=== PATIENT | male | born 1950 | race Caucasian/White ===

== ENCOUNTER 2017-01-05 18:27 | Inpatient (IN) ==
[2017-01-05] MEDS ORDERED: Naloxone 0.4 MG/ML INJ IVP PRN (21:42)
[2017-01-05] MEDS ORDERED: Nitroglycerin 0.4 MG TAB.SUBL SL PRN (21:53)
[2017-01-05 22:04] LABS: Basophils # 0.1 K/mcL (0.0-0.2); Basophils % 0.5 %; Eosinophils # 0.3 K/mcL (0.0-0.6); Hematocrit 34.2 % (37.5-50.1); Hemoglobin 11.5 g/dL (12.9-16.9); Immature Granulocytes % 0.5 % (0-4); Lymphocytes # 2.9 K/mcL (0.6-4.6); Lymphocytes % 22.1 %; Mean Corpuscular HGB Conc 33.6 g/dL (31.6-35.5); Mean Corpuscular Hemoglobin 27.7 pg (28.0-33.3); Mean Corpuscular Volume 82.4 fL (83.0-100.0); Mean Platelet Volume 11.6 fL (9.4-12.4); Monocytes # 0.9 K/mcL (0.0-1.3); Monocytes % 6.4 %; Platelet Count 225 K/mcL (140-400); Red Blood Count 4.15 M/mcL (4.19-5.50); Red Cell Distribution Width 14.3 % (11.5-14.5); Segmented Neutrophils % 68.5 %
[2017-01-05 22:07] LABS: Prothrombin Time 10.9 Seconds (9.4-12.1)
[2017-01-05 22:15] LABS: BUN/Creatinine Ratio 26 (6-26); Blood Urea Nitrogen 25 mg/dL (8-26); Calcium 9.6 mg/dL (8.6-10.8); Carbon Dioxide 21 mEq/L (19-29); Chloride 106 mEq/L (98-109); Glucose 234 mg/dL (70-99); Magnesium 1.3 mg/dL (1.6-2.6); Osmolality,Calculated 298 (280-300); Potassium 4.3 mEq/L (3.5-4.5); Sodium 138 mEq/L (136-145); eGFR For African Americans > 60 (> 60); eGFR For Non-African Americans > 60 (> 60)
[2017-01-05] MEDS ORDERED: D5% in Water 1,000 ML IVC PRN (22:17)
[2017-01-05] MEDS ORDERED: *HR* Dextrose 50 % in Water (Syg) 50 ML SYRINGE IVP PRN (22:17)
[2017-01-05] MEDS ORDERED: Dextrose Gel 15 GM PO PRN ×2 (22:17)
--- NOTE | 2017-01-05 22:47 | Internal Med History&Physical ---
<Eleni Lockwood - Last Filed: 01/05/17 23:25> Date of Encounter: 01/05/17 Time of Encounter: 21:30 Assessment and Plan (1) Chest pain Current visit: Yes Status: Acute 1 patient with history of coronary disease with stent placement patient began to experience left-sided chest pain arm pain approximately 1245 this afternoon. Troponin at [facility] was 0.096 was transferred to this facility for evaluation troponin here was 0.01 EKG at this time with no ST T wave elevation he does have frequent PVCs at the right bundle branch block. Patient was given morphine which did relieve his pain however it continued with exertion we will continue to trend troponins 2 continuous cardiac monitoring 3 obtain cardiac echo 4 obtain lipid profile 5 continue with aspirin and statin 6 oxygen as needed maintain SPO2 greater than 92% 7 consult cardiology as needed Qualifiers: Chest pain type: unspecified Qualified Code(s): R07.9 - Chest pain, unspecified (2) CHF (congestive heart failure) Current visit: No Status: Chronic 1 patient has history of combined heart failure with EF of 25% presently he appears stable 2 continuous cardiac monitoring 3 we will obtain cardiac echo 4 monitor intake and output daily weights 5 low sodium diet Qualifiers: Congestive heart failure type: combined Congestive heart failure chronicity : chronic Qualified Code(s): I50.42 - Chronic combined systolic (congestive) and diastolic (congestive) heart failure (3) Substance abuse Current visit: Yes Status: Acute 1atient has history of benzodiazepine as well as opiate use and dependence. He does purchase benzos and opiates off the street to supplement his habit. He presented to the [facility] on 01/04/2017 for admission to detox. He was continued on his opiate dt chronic back pain. He was placed on the benzo taper per psych however the concerned about medical conditions and when the patient medically cleared prior to detoxing. 2 we will continue patient's pain medication and to prevent withdrawal - decrease cardiac stress will continue with low-dose benzodiazepine to prevent withdrawal. He can return back to his taper once he is medically cleared (4) Tobacco abuse Current visit: Yes Status: Acute Encourage patient to stop smoking-nicotine patch (5) Schizophrenia Current visit: No Status: Chronic 1 we will continue with Seroquel Qualifiers: Schizophrenia type: unspecified Qualified Code(s): F20.9 - Schizophrenia, unspecified (6) DVT prophylaxis Current visit: Yes Status: Acute Heparin subcutaneous Internal Medicine - H&P: HPI Chief complaint: cp Admitted From: Hospital to Hospital Transfer Plans for Post Hospital Care: Home History of present illness: Mr. Velazquez is a 66 year old male with past medical history of CAD status post previous stents COPD combined systolic and diastolic heart failure with EF 25% status post ICD schizophrenia history of drug abuse with drug seeking behavior. Patient was admitted to the [facility] on 01/04/2017 he was therefore detox due to long history of opiate and benzo use abuse dependence. He has a history of chronic back and neck pain which is why he is using oxycodone he also has been taking clonazepam which has been prescribed as well as supplementing doses by purchasing off the street. Patient was scheduled for elective admission to detox program on 01/07/17. However he was seen by psychiatry who felt it was unsafe for direct admission due to his underlying medical issues. At that time they requested the patient be tapered off his benzos prior to admission to a long-term detox program. He was at the [facility] tapering his benzos with approximately 1245 he began to experience electrical pain radiating up his left arm into his left chest he began to experience 7 out of 10 sharp stabbing pressure. The pain was aggravated with exertion and relieved with morphine as well as rest. Cardiac enzymes were obtained troponin was 0.096 patient was transferred to this facility for further workup and evaluation. Upon arrival troponin obtained which was 0.01 patient continues to have 7 out of 10 chest pain EKG is obtained as well as stat labs. EKG with no ST -T wave abnormalities at this time Heart sounds are regular S1 and S2 with no rubs clicks gallops murmurs noted lungs sounds are clear abdomen soft nontender no pedal edema. She does appear to be tremulous. He is hemodynamically stable this time. I reviewed his case with Dr. Arreguin who agrees with plan Past Med Surg Social Fam HX - Additional Family History Additional family history: Reviewed and noncontributory Internal Medicine - H&P: Meds ASA/Acetaminophn/Mag/Alh/Caff 01/05/17 [History] ASA/Acetaminophn/Mag/Alh/Caff 81 mg PO DAILY 01/05/17 [History] Acetaminophen 325 tab PO TID 01/05/17 [History] Albuterol Inhaler 2 puff TID 01/05/17 [History] Atorvastatin 80 mg PO DAILY 01/05/17 [History] Budesonide/Formoterol 80/4.5 2 puff IH BID 01/05/17 [History] Chlorhexidine 01/05/17 [History] Chlorhexidine Gluconate 15 ml PO BID 01/05/17 [History] Finasteride 5 mg PO DAILY 01/05/17 [History] amLODIPine 5 mg PO DAILY 01/05/17 [History] Allergies ibuprofen Allergy (Unknown, Verified 01/05/17 20:40) Nausea nausea, patient states makes him sick at his stomach All Systems PM: A 10-system review of systems was performed and is negative for pertinent findings except as documented above in the HPI. - Constitutional Constitutional: no chills, no fever(s), no night sweats - EENT Eyes: no change in vision, no discharge, no pain, no photophobia Ears: no ear discharge, no ear pain, no tinnitus Nose, mouth and throat: no dysphagia, no nasal discharge, no neck pain, no sore throat - Cardiovascular Cardiovascular ROS IM: no chest pain, no diaphoresis, no dyspnea, no lightheadedness, no palpitations, no syncope - Respiratory Respiratory: no cough, no dyspnea, no wheezing, no excessive phlegm production - Gastrointestinal Gastrointestinal: no abdominal pain, no diarrhea, no hematemesis, no hematochezia, no melena, no nausea, no vomiting - Musculoskeletal Musculoskeletal ROS IM: back pain, neck pain - Neurological Neurological ROS: no confusion, no convulsions, no focal weakness, no numbness, no tingling, no tremor(s) - Hematologic/Lymphatic Hematologic/Lymphatic: no easy bruising - Constitutional Vitals: Temp Pulse Resp BP Pulse Ox 97.7 F 72 15 131/80 96 01/05/17 19:48 01/05/17 19:48 01/05/17 19:48 01/05/17 19:48 01/05/17 19:48 General appearance: Present: A&O X 3, answers questions appropriately - Head Head exam: Present: atraumatic, normocephalic - Eye Eye exam: Present: PERRL, conjuntiva pink, sclera anicteric - Neck Neck exam general surgery: Present: supple, trachea midline. Absent: lymphadenopathy - Respiratory Respiratory exam: Present: CTAB. Absent: accessory muscle use, rales, rhonchi, wheezes - Cardiovascular Cardiovascular exam: Present: RRR, +S1, +S2. Absent: diastolic murmur, gallop, rubs, systolic murmur - GI/Abdominal GI/Abdominal exam: Present: normal bowel sounds, soft, no peritoneal signs. Absent: distended, tenderness - Extremities Exam Extremities exam: Present: warm, radial pulses palpable and symetrical. Absent : calf tenderness, cyanotic, pedal edema - Neurological Exam Neurological exam: Present: CN II-XII intact, oriented X3, no focal deficits. Absent: pronater drift, facial droop, speech deficit - Skin Skin exam: Present: dry, intact Internal Med - H&P Results - Labs CBC & Chem 7: 01/05/17 21:02 01/05/17 21:02 Labs: Short CBC 01/05/17 Range/Units 21:02 WBC 13.2 H (4.3-11.1) K/mcL Hgb 11.5 L (12.9-16.9) g/dL Hct 34.2 L (37.5-50.1) % Plt Count 225 (140-400) K/mcL Neutrophils # 9.0 H (1.6-8.9) K/mcL BMP 01/05/17 21:02 Sodium 138 Potassium 4.3 Chloride 106 Carbon Dioxide 21 BUN 25 Creatinine 0.97 Glucose 234 H Calcium 9.6 Cardiac Enzymes 01/05/17 Range/Units 21:02 Troponin I 0.01 (0-0.03) ng/mL - EKG Data EKG comments: 01/05/17 23:24 Reviewed the EKG with sinus rhythm with PVCs right bundle-branch block <Mikel Arreguin - Last Filed: 01/06/17 00:56> Date of Encounter: 01/06/17 - Cardiovascular Cardiovascular ROS IM: no chest pain, no dyspnea - Respiratory Respiratory: no cough, no dyspnea, no hemoptysis - Psychiatric Psychiatric: anxiety, depression - Constitutional Vitals: Temp Pulse Resp BP Pulse Ox 97.7 F 72 15 131/80 96 01/05/17 19:48 01/05/17 19:48 01/05/17 19:48 01/05/17 19:48 01/05/17 19:48 General appearance: Present: A&O X 3, no acute distress, answers questions appropriately - Eye Eye exam: Present: EOMI, PERRL. Absent: scleral icterus Pupils: Present: normal accommodation - ENT ENT exam: Present: mucous membranes dry, normal exam - Neck Neck exam general surgery: Present: full ROM, supple. Absent: tenderness - Expanded Neck Exam Neck exam: Absent: carotid bruit - Respiratory Respiratory exam: Present: CTAB. Absent: rales, rhonchi, wheezes - Cardiovascular Cardiovascular exam: Present: RRR, +S1, +S2. Absent: diastolic murmur, systolic murmur - GI/Abdominal GI/Abdominal exam: Present: normal bowel sounds, soft. Absent: tenderness - Extremities Exam Extremities exam: Present: warm, radial pulses palpable and symetrical. Absent : calf tenderness - Back Exam Back exam: Absent: CVA tenderness (L), CVA tenderness (R) - Neurological Exam Neurological exam: Present: alert, CN II-XII intact, oriented X3, no focal deficits - Psychiatric Psychiatric exam: Present: anxious. Absent: agitated - Skin Skin exam: Present: dry, warm Internal Med - H&P Results - Labs CBC & Chem 7: 01/05/17 21:02 01/05/17 21:02 Labs: Short CBC 01/05/17 Range/Units 21:02 WBC 13.2 H (4.3-11.1) K/mcL Hgb 11.5 L (12.9-16.9) g/dL Hct 34.2 L (37.5-50.1) % Plt Count 225 (140-400) K/mcL Neutrophils # 9.0 H (1.6-8.9) K/mcL BMP 01/05/17 21:02 Sodium 138 Potassium 4.3 Chloride 106 Carbon Dioxide 21 BUN 25 Creatinine 0.97 Glucose 234 H Calcium 9.6 Cardiac Enzymes 01/05/17 Range/Units 21:02 Troponin I 0.01 (0-0.03) ng/mL - EKG Data -: EKG Interpreted by Myself EKG shows normal: sinus rhythm - EKG Data Prior EKG available for review: yes When compared to previous EKG: there is no significant change EKG comments: 01/06/17 00:49 Sinus rhythm; no acute ST-T changes; RBBB; PVC's. Disagree with computer interpretation; there is no ST-T elevation. - Attending Attestation I discussed the patient [place], PMH, ROS, lab data, and exam findings with Eleni Lockwood CNP. I then saw and examined patient independently as well. Patient denies any chest pain now, but he did have chest pain earlier at the [facility] prompting transfer to [place]. He has history of CAD. He will not be tapered off of his opiates or benzodiazepenes until he is medically stable and cleared from a cardiac standpoint. I will defer his detoxification to the [facility] once he is cleared from a medical standpoint here. He has been on opiates and BZD for over 25 years, and I highly recommend a slow taper. I reviewed his EKG personally from [facility] and from [facility] -- unchanged and stable at this time. Current troponin is 0.01. Other than my comments noted above and exam findings , I agree with Eleni's assessment and plan.
[2017-01-05] MEDS ORDERED: Magnesium Sulfate 2 GM in D5% in Water 100 ML IVPB ONE (23:26)
[2017-01-06] MEDS: *HR* OxyCODONE Immed Rel 5 MG TABLET PO SCH ×4 (00:04→21:48)
[2017-01-06 06:30] LABS: BUN/Creatinine Ratio 30 (6-26); Blood Urea Nitrogen 26 mg/dL (8-26); Calcium 8.9 mg/dL (8.6-10.8); Carbon Dioxide 25 mEq/L (19-29); Chloride 105 mEq/L (98-109); Glucose 190 mg/dL (70-99); Osmolality,Calculated 294 (280-300); Potassium 4.1 mEq/L (3.5-4.5); Sodium 137 mEq/L (136-145); eGFR For African Americans > 60 (> 60); eGFR For Non-African Americans > 60 (> 60)
[2017-01-06 06:32] LABS: Chol/HDL Ratio 2.9 (0-4.9)
[2017-01-06] MEDS ORDERED: clonazePAM 0.5 MG TABLET PO SCH ×2 (09:00)
[2017-01-06] MEDS: Gabapentin 300 MG CAPSULE PO SCH ×3 (09:14→21:47)
[2017-01-06] MEDS: amLODIPine 5 MG TABLET PO SCH (09:15)
[2017-01-06] MEDS: Aspirin 81 MG TAB.CHEW PO SCH (09:15)
[2017-01-06] MEDS: Finasteride 5 MG TABLET PO SCH (09:15)
[2017-01-06] MEDS: Nicotine 21 MG PATCH.TD24 TD SCH (09:16)
[2017-01-06] MEDS: Insulin LISPRO 300 UNITS/3 ML VIAL SQ SCH ×3 (09:19→17:42)
[2017-01-06 10:21] LABS: Basophils # 0.1 K/mcL (0.0-0.2); Basophils % 0.7 %; Eosinophils # 0.4 K/mcL (0.0-0.6); Eosinophils % 3.4 %; Hematocrit 37.9 % (37.5-50.1); Hemoglobin 12.2 g/dL (12.9-16.9); Immature Granulocytes % 0.7 % (0-4); Lymphocytes % 34.1 %; Mean Corpuscular HGB Conc 32.2 g/dL (31.6-35.5); Mean Corpuscular Hemoglobin 26.7 pg (28.0-33.3); Mean Corpuscular Volume 82.9 fL (83.0-100.0); Mean Platelet Volume 10.4 fL (9.4-12.4); Monocytes # 0.7 K/mcL (0.0-1.3); Monocytes % 5.8 %; Neutrophils # 6.4 K/mcL (1.6-8.9); Platelet Count 230 K/mcL (140-400); Red Blood Count 4.57 M/mcL (4.19-5.50); Red Cell Distribution Width 14.3 % (11.5-14.5); Segmented Neutrophils % 55.3 %
[2017-01-06] MEDS: Magnesium Oxide 400 MG TABLET PO SCH ×3 (10:47→21:46)
[2017-01-06] MEDS: Budesonide/Formoterol 80/4.5 MDI IH SCH ×2 (11:03→22:42)
[2017-01-06 12:53] LABS: Bilirubin,Urine Negative (Negative); Blood,Urine Moderate (Negative); Clarity,Urine Clear (Clear); Color,Urine Yellow (Yellow); Glucose,Urine (UA) Normal (Normal); Ketones,Urine Negative (Negative); Leukocyte Esterase,Urine Negative (Negative); Nitrite,Urine Negative (Negative); Protein,Urine Negative (Neg-Trace); Specific Gravity,Urine 1.018 (1.010-1.025); Urobilinogen,Urine Normal (Normal)
[2017-01-06 12:56] LABS: Bacteria,Urine None Seen per hpf (None-Few); Hyaline Casts,Urine None Seen per lpf (None-Few); Squamous Epithelial Cell,Urine Many per lpf (None-Few)
--- NOTE | 2017-01-06 14:13 | Electrocardiograph Report ---
[place] [id number] Test Date: 2017-01-05 Pat Name: Artur Velazquez Department: 111 Room: [facility] Gender: M [employer]: [facility] : 1950 Requested By: Eleni Lockwood Order Number: [id number] Reading MD: Joshua Peter Measurements Intervals [place] Rate: 75 P: 61 CA: 170 QRS: -21 QRSD: 154 T: 21 QT: 408 QTc: 436 Interpretive Statements SINUS RHYTHM WITH OCCASIONAL VENTRICULAR PREMATURE COMPLEXES BORDERLINE LEFT AXIS DEVIATION RIGHT BUNDLE BRANCH BLOCK Electronically Signed On 01-06-2017 14:11:27 EDT by Joshua Peter
--- NOTE | 2017-01-06 15:04 | Internal Med Progress Note ---
Date of Encounter: 01/06/17 Time of Encounter: 15:02 - Assessment and plan (1) Chest pain Current Visit: Yes Status: Acute Assessment and plan: Case discussed with cardiology. As his cardiac stents were placed in 2007, he might benefit from a pharmacologic stress test. Likely stress test tomorrow morning. His cardiac enzymes have been negative. Patient is moderate risk due to need for further evaluation for ischemia during the current stay. Qualifiers: Chest pain type: precordial pain Qualified Code(s): R07.2 - Precordial pain (2) Coronary artery disease Current Visit: Yes Status: Chronic Assessment and plan: Patient complains of chest pain that is radiating to the left arm. Cardiology on board. Likely stress test tomorrow. Qualifiers: Coronary Disease-Associated Artery/Lesion type: [place] artery [place] vs. transplanted heart: [place] heart Associated angina: with unspecified angina Qualified Code(s): I25.119 - Atherosclerotic heart disease of [place] coronary artery with unspecified angina pectoris (3) Tobacco abuse Current Visit: Yes Status: Chronic Assessment and plan: Counseled regarding cessation. (4) Substance abuse Current Visit: No Status: Chronic - Subjective Interval history: Patient states that he has chest pain in the middle of the chest radiating to his left arm associated with nausea, shortness of breath and palpitations and sweating. He denies any aggravating or relieving factors. He is requesting for morphine for the chest pain. When nitroglycerin was offered, he states that he is allergic to nitroglycerin. He states that he breaks out in hives with the nitroglycerin and that it upsets his stomach. He states that he had a stent put in in 2007. He reports having a left heart catheterization about 5 years ago in [place] which did not reveal any acute abnormalities. - Constitutional Vitals: Temp Pulse Resp BP Pulse Ox 98.3 F 85 18 138/96 96 01/06/17 12:06 01/06/17 12:06 01/06/17 12:06 01/06/17 12:06 01/06/17 12:06 General appearance: Present: A&O X 3, no acute distress, answers questions appropriately Exam: Gen.: Lying in bed. No acute distress. Chest: Clear to auscultation bilaterally. No adventitious sounds present. No reproducible chest wall tenderness. CVS: First and second heart sounds present. No murmurs, rubs or gallops. Abdomen: Soft, nontender, nondistended. Bowel sounds present. No hepatosplenomegaly. Internal Medicine: Result - Labs CBC & Chem 7: 01/06/17 09:58 01/06/17 05:48 Labs: Short CBC 01/05/17 01/06/17 Range/Units 21:02 09:58 WBC 13.2 H 11.6 H (4.3-11.1) K/mcL Hgb 11.5 L 12.2 L (12.9-16.9) g/dL Hct 34.2 L 37.9 (37.5-50.1) % Plt Count 225 230 (140-400) K/mcL Neutrophils # 9.0 H 6.4 (1.6-8.9) K/mcL BMP 01/05/17 01/06/17 21:02 05:48 Sodium 138 137 Potassium 4.3 4.1 Chloride 106 105 Carbon Dioxide 21 25 BUN 25 26 Creatinine 0.97 0.88 Glucose 234 H 190 H Calcium 9.6 8.9 Cardiac Enzymes 01/05/17 01/06/17 Range/Units 21:02 09:58 Troponin I 0.01 0.01 (0-0.03) ng/mL Urine 01/06/17 Range/Units 12:31 Urine Color Yellow (Yellow) Urine Clarity Clear (Clear) Urine pH 6.0 (5.0-8.0) pH Units Ur Specific [place] 1.018 (1.010-1.025) Urine Protein Negative (Neg-Trace) mg/dL Urine Glucose (UA) Normal (Normal) mg/dL - ABG Interpretation ABG results: PT/INR, D-dimer PT 10.9 Seconds (9.4-12.1) 01/05/17 21:02 - Impressions Impressions Chest X-Ray 01/05/17 22:53 IMPRESSION: Right middle lobe opacification, likely atelectasis or scarring. Pneumonia also could have this appearance. D/ / Nolvia Wilkinson Cha, MD / Nolvia Wilkinson Cha, MD Interpreting Provider: Nolvia Wilkinson Cha, MD Case discussed with cardiology Consult Discharge Plan - Plan [facility]: [facility] [Primary Care Provider] -
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
[2017-01-06] MEDS: Metoprolol XL (24 HR) Succ 25 MG TAB.ER.24H PO SCH (17:41)
[2017-01-06] MEDS ORDERED: Insulin LISPRO 300 UNITS/3 ML VIAL SQ SCH (21:00)
[2017-01-06] MEDS ORDERED: Insulin DETEMIR 100 UNIT/ML X5UNITS SQ SCH (21:00)
[2017-01-06] MEDS: *HR* LORazepam 1 MG TABLET PO SCH (21:47)
[2017-01-07] MEDS ORDERED: Regadenoson 0.4 MG/5 ML SYRINGE IVP ONE (06:57)
[2017-01-07] MEDS: Insulin LISPRO 300 UNITS/3 ML VIAL SQ SCH ×2 (08:56→12:55)
[2017-01-07] MEDS: *HR* OxyCODONE Immed Rel 5 MG TABLET PO SCH ×2 (09:01→15:19)
[2017-01-07] MEDS: Budesonide/Formoterol 80/4.5 MDI IH SCH (11:01)
--- NOTE | 2017-01-07 12:17 | Nuclear Medicine Stress Report ---
Regadenoson Nuclear Stress Name: Artur Velazquez Date of Study: 01/07/2017 Date: 1950 Ht: 68.0 in Medical Record#: [id number] Age: 66 Wt: 165.0 lb Gender: Male Order #: [id number] Location: [facility] Room: [facility] Supervising Provider: Maryjo Lang CNP Reading Physician: Lloyd Smith DO, FACC, FASAR Ordering Physician: Gus Burch MD Primary Care Physician: [facility] Stress Technologist: Nicolas Negron DIRECTOR GLOBAL MEDICAL AFFAIRS, CCT Protein Specialist: Daya Chacko Indications: Chest Pain Impression: Pharmacologic stress ECG is non diagnostic for ischemia due to submaximal HR. Gated EF = 41%. The left ventricle is dilated. LVEDV = 153 mL. Medium sized, moderate intensity, primarily fixed inferior, inferoseptal and apex defect suggestive of a prior infarct. Perfusion imaging was negative for ischemia. History: Hypertension Diabetes Hypercholesteremia History of Smoking Prior PCI Stress Test Summary: Stress Test Type: Pharmacologic Regadenoson 0.4mg/5ml given IV Baseline Information: Initial Heart Rate: 71 Blood Pressure: 114/68 Stress Information: Stress Time: 4 min 00 sec Test Terminated Due to (primary): Completed Protocol Maximum Blood Pressure: 102/70 Maximum Heart Rate: 94 Percent Maximum Heart Rate Achieved: 60 Double Product: 9588 METS Reached: 1 Symptoms: Shortness of breath, [place] Nuclear Summary: SPECT myocardial perfusion imaging using Tc99m Sestamibi given intravenously was performed at rest and following cardiac stress testing. The resting images were obtained following initial dose of 11 mCi. Following stress an additional dose of 30.6 mCi was given at peak exercise or 30 seconds post regadenoson infusion. Medication Given: Time Medication Dose Units Route Findings: Stress Note * Resting ECG demonstrated normal sinus rhythm, RBBB. * Occasional PVCs noted prior to exam beginning. * Pharmacologic stress ECG is non diagnostic for ischemia due to submaximal HR. * Occasional PVCs noted during stress. * Patient had no chest pain during stress. Hemodynamic responses * Normal hemodynamic responses to pharmacologic stress. Study Quality * Study quality is average. Gated EF % * Gated EF = 41%. Left Ventricle * The left ventricle is dilated. LVEDV = 153 mL. Inferior Perfusion Rest * The inferior/inferoseptal segments and apex show a moderate reduction in perfusion. Inferior Perfusion Stress * The inferior/inferoseptal segments and apex show a moderate reduction in perfusion. TID * No evidence of transient ischemic dilatation. TID ratio = 0.94. Lung Uptake * There is no evidence of increase lung uptake. Updated by Lloyd Smith DO, MAGGY, KIM, HARLEY on 01/07/2017 12:10:30 PM electronically signed on 01/07/2017 12:11:28 PM with status of Final
[2017-01-07 12:38] VITALS: BP 128/63
[2017-01-07] MEDS: amLODIPine 5 MG TABLET PO SCH (12:54)
[2017-01-07] MEDS: Aspirin 81 MG TAB.CHEW PO SCH (12:54)
[2017-01-07] MEDS: Finasteride 5 MG TABLET PO SCH (12:54)
[2017-01-07] MEDS: Gabapentin 300 MG CAPSULE PO SCH ×2 (12:54→15:19)
[2017-01-07] MEDS: *HR* LORazepam 1 MG TABLET PO SCH (12:54)
[2017-01-07] MEDS: Metoprolol XL (24 HR) Succ 25 MG TAB.ER.24H PO SCH (12:54)
[2017-01-07] MEDS: Nicotine 21 MG PATCH.TD24 TD SCH (12:55)
--- NOTE | 2017-01-07 13:05 | Discharge Summary ---
Date of Encounter: 01/07/17 Time of Encounter: 13:03 - Discharge Diagnosis (1) Chest pain Priority: Primary Status: Resolved Qualifiers: Chest pain type: precordial pain Qualified Code(s): R07.2 - Precordial pain (2) Coronary artery disease Priority: Secondary Status: Chronic Qualifiers: Coronary Disease-Associated Artery/Lesion type: [place] artery [place] vs. transplanted heart: [place] heart Associated angina: without angina Qualified Code(s): I25.10 - Atherosclerotic heart disease of [place] coronary artery without angina pectoris (3) Tobacco abuse Priority: Secondary Status: Chronic (4) Substance abuse Priority: Secondary Status: Chronic - Discharge Medications Home Medications: Acetaminophen [Non-Aspirin] 325 mg PO TID 01/05/17 [History] Albuterol Sulfate [Albuterol Inhaler] 2 puff IH Q6HR PRN 01/05/17 [History] Aspirin [Lo-Dose Aspirin EC] 81 mg PO DAILY 01/05/17 [History] Atorvastatin Calcium [Lipitor] 80 mg PO HS 01/05/17 [History] Budesonide/Formoterol 80/4.5 [Symbicort 80/4.5] 2 puff IH BIDR 01/05/17 [ History] Chlorhexidine Gluconate [Peridex] 15 ml MM BID 01/05/17 [History] Finasteride [Proscar] 5 mg PO DAILY 01/05/17 [History] Lidocaine Jelly 2% 1 appl MM TID PRN 01/05/17 [History] amLODIPine [Norvasc] 5 mg PO DAILY 01/05/17 [History] Gabapentin [Neurontin] 1,200 mg PO TID 01/06/17 [History] Insulin ASPART [Novolog Flexpen] 10 unit SQ TIDAC 01/06/17 [History] Insulin Glargine,Hum.rec.anlog [Lantus Solostar] 34 unit SQ QAM 01/06/17 [ History] LORazepam [Ativan] 1 mg PO BID 01/06/17 [History] Losartan [Cozaar] 25 mg PO DAILY 01/06/17 [History] Metformin HCl [Glucophage] 1,000 mg PO BID 01/06/17 [History] Nicotine Patch [Nicoderm] 21 mg TD DAILY 01/06/17 [History] Nitrofurantoin Monohyd/M-Cryst [Macrobid 100 mg Capsule] 100 mg PO BIDWM [History] Nitroglycerin [Nitrostat] 0.4 mg SL AD PRN 01/06/17 [History] Oxycodone HCl 10 mg PO TID 01/06/17 [History] Oxycodone HCl [Oxaydo] 5 mg PO Q6H PRN 01/06/17 [History] Pantoprazole Sodium [Protonix] 40 mg PO DAILY 01/06/17 [History] Quetiapine Fumarate [Seroquel Xr] 225 mg PO HS 01/06/17 [History] Ranitidine HCl [Zantac] 150 mg PO BID PRN 01/06/17 [History] hydrOXYzine HCl [Hydroxyzine HCl] 50 mg PO Q6H PRN 01/06/17 [History] Allergies/Adverse Reactions: Allergies ibuprofen Allergy (Unknown, Verified 01/05/17 20:40) Nausea nausea, patient states makes him sick at his stomach Procedures/tests Complete & Pending: Procedures Performed prior 72 hours Category Date Time Status NM ruiz perf SPECT multi [NM] Routine Exams 01/06/17 15:26 Taken ECG 12 lead ECG [ECG] Stat Y 01/05/17 21:42 Completed EV echocardiogram Routine Y 01/05/17 21:44 Completed SP pharm nuclear stress Routine Y 01/07/17 12:00 Completed Date of admission: 01/05/17 19:17 Primary care physician: PCP PRASANTH Consults: 01/06/17 13:05 Consult to Cardiology [CONS] Routine Comment: Consulting Provider: Cardiology Kya Reason for Consult: CHEST PAIN, CAD Call Completed: Yes 01/07/17 09:23 Consult to Gear Coding Machine Operator [CONS] Routine Reason for SW Consult: from [place] Discharging clinician: Gus Burch Anticipated date of discharge: 01/07/17 - Patient Status Disposition: Transfer Other Condition: Good Functional capacity at discharge: independent ambulation Overall status at discharge: patient is back to baseline - Discharge Instructions [facility] Care Provider[facility] - - Diet and Activity Activity: increase activity as tolerated Diet: low fat, low cholesterol, low salt diet Hospital course: Mr. 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 Hence, he was transferred to [facility] for evaluation of the same. The patient was admitted and evaluated by cardiology due to his history of coronary artery disease. The patient last had stents put in in 2007. He has not had any further stress test performed. Hence, it was decided that the issue would benefit from a pharmacological stress test. The patient underwent the same on 01/07/2017. The stress test demonstrates a fixed defect which is consistent with a prior infarction but is negative for reversible ischemia. The patient reports that his chest pain has resolved on the day of discharge. As the patient's chest pain has resolved and his pharmacological stress test is negative for reversible ischemia, he has been deemed stable to be discharged back to the [facility] for continued detoxication. - Time Spent with Patient Total time spent providing and/or coordinating discharge services: - Constitutional Vitals: Temp Pulse Resp BP Pulse Ox 97.8 F 83 15 128/63 96 01/07/17 11:00 01/07/17 11:00 01/07/17 11:00 01/07/17 11:00 01/07/17 11:00 General appearance: Present: A&O X 3, no acute distress, answers questions appropriately Exam: Gen.: Sitting in a chair and consuming his lunch. No acute distress. Chest: Clear to auscultation bilaterally. No adventitious sounds present. CVS: First and second heart sounds present. No murmurs, rubs or gallops.
--- NOTE | 2017-01-07 14:23 | Cardiology Progress Note ---
Date of Encounter: 01/07/17 Time of Encounter: 14:30 Assessment and Plan (1) Chest pain Current Visit: Yes Status: Resolved C/o chest pain similar to previous MT. Mild troponin 0.09, then negative x 2. EKG with no acute ST changes. Last LHC five years ago at [facility] showed patent stents. TTE this admission shows EF 30-35% with global and regional wall motion abnormalities. Lead noted in the RA and RV. Mild mitral regurgitation. (reports EF previously 25%.) Reports allergy to NTG- causes nausea. Low dose bb started. Denies chest pain today. C/o only low back pain and leg pain. Pharmacologic stress test completed today was negative for ischemia. Noted to have prior infarct in the inferoseptum and apex. Continue medical management. Out patient f/u in 2 weeks with cardiology. [facility]iology will coordinate. Qualifiers: Chest pain type: precordial pain Qualified Code(s): R07.2 - Precordial pain (2) Coronary artery disease Current Visit: Yes Status: Chronic H/o MT and PCI in 2007. Continue asa and statin. Add bb. Qualifiers: Coronary Disease-Associated Artery/Lesion type: [place] artery [place] vs. transplanted heart: [place] heart Associated angina: without angina Qualified Code(s): I25.10 - Atherosclerotic heart disease of [place] coronary artery without angina pectoris (3) CHF (congestive heart failure) Current Visit: No Status: Chronic EF 30-35%. Reports it was 25% in the past. Currently euvolemic. ICD in place. Continue bb and arb. CHF education. Strict I&O and daily weights. Low sodium diet. Qualifiers: Congestive heart failure type: combined Congestive heart failure chronicity : chronic Qualified Code(s): I50.42 - Chronic combined systolic (congestive) and diastolic (congestive) heart failure Discussion w patient/family: The assessment and plan as outlined above was discussed with the patient and/or family members who expressed understanding and agreement. All questions were answered. Thank you for involving us in the care of your patient. Please call with any questions. Subjective Principal diagnosis: Chest pain Interval history: Stress test completed today. Objective Vital Signs, Last 4 Hours Temp Pulse Resp BP Pulse Ox 01/07/17 11:00 97.8 F 83 15 128/63 96 General: Conversant, No Apparent Distress HEENT: Atraumatic, Normocephaly, Mucus Membranes Moist Neck: No JVD, Normal carotid pulses Cardiac: Reg Rate and Rhythm, Normal S1 and S2, No Murmur Lungs: Normal Breath Sounds, No Wheeze, Rales, Rhonchi Neuro: Alert and responsive, No focal deficits noted Abdomen: Soft, Non-Tender Skin: No rashes noted on visualized skin Musculoskeletal: No Chest Wall Tenderness, Other (genralized weakness. ) Extremities: No Clubbing, No Cyanosis, No Edema, Normal Pulses Results 01/06/17 09:58 01/06/17 05:48 Lab Results 01/06/17 16:02 Troponin I 0.02 Consult Discharge Plan - Plan Instructions: Chest Pain (DC), Chest Pain (GEN) [facility]errals: [facility] [Primary Care Provider] -
== END 2017-01-07 15:50 | disposition other institution (70) | DRG 303 ==
LOC: 2NENU 19:17
PROVIDERS: ADMIT Internal Medicine; ATTEND Internal Medicine Sleep Medicine

== ENCOUNTER 2017-03-30 12:46 | Inpatient (IN) ==
--- NOTE | 2017-03-30 12:53 | Emergency Department Note ---
Disposition Clinical Impression: Chest pain Qualifiers: Chest pain type: unspecified Qualified Code(s): R07.9 - Chest pain, unspecified Disposition: Admitted As Inpatient Condition: Good Chest Pain HPI - General Chief Complaint: ED Chest Pain Stated Complaint: chest pain Time Seen by Provider: 03/30/17 12:49 Source: patient, EMS Mode of arrival: EMS Limitations: no limitations Vital Signs Reviewed: Yes Nursing Notes Reviewed: Yes - History of Present Illness HPI Narrative: Patient presents to the ED as a transfer from the [facility]. Patient was admitted to the psychiatry unit at the [facility] and was complaining of chest pain that started yesterday. He went into the [facility] urgent care today and had a normal chest x-ray, but did have an elevated troponin. Does have a history of coronary artery disease with one stent in 2007. States this pain feels very similar. Started yesterday, has been intermittent, states it "feels like an elephant is sitting on my chest", nonradiating, associated with intermittent diaphoresis and nausea but no vomiting. No abdominal pain. No shortness of breath. No pain or swelling in his legs. States he is allergic to nitroglycerin. Patient was sent here for further evaluation. - Related Data Home Medications Medication Instructions Recorded Confirmed Acetaminophen [Non-Aspirin] 325 mg PO TID 01/05/17 03/30/17 Albuterol Sulfate [Albuterol 2 puff IH Q6HR PRN 01/05/17 03/30/17 Inhaler] Aspirin [Lo-Dose Aspirin EC] 81 mg PO DAILY 01/05/17 03/30/17 Atorvastatin Calcium [Lipitor] 80 mg PO HS 01/05/17 03/30/17 Budesonide/Formoterol 80/4.5 2 puff IH BIDR 01/05/17 03/30/17 [Symbicort 80/4.5] Chlorhexidine Gluconate [Peridex] 15 ml MM BID 01/05/17 03/30/17 Finasteride [Proscar] 5 mg PO DAILY 01/05/17 03/30/17 Lidocaine Jelly 2% 1 appl MM TID PRN 01/05/17 03/30/17 amLODIPine [Norvasc] 5 mg PO DAILY 01/05/17 03/30/17 Gabapentin [Neurontin] 300 mg PO TID 01/06/17 03/30/17 Insulin ASPART [Novolog Flexpen] 10 unit SQ TIDAC 01/06/17 03/30/17 Insulin Glargine,Hum.rec.anlog 34 unit SQ QAM 01/06/17 03/30/17 [Lantus Solostar] LORazepam [Ativan] 1 mg PO BID 01/06/17 03/30/17 Losartan [Cozaar] 25 mg PO DAILY 01/06/17 03/30/17 Metformin HCl [Glucophage] 1,000 mg PO BID 01/06/17 03/30/17 Nicotine Patch [Nicoderm] 21 mg TD DAILY 01/06/17 03/30/17 Pantoprazole Sodium [Protonix] 40 mg PO DAILY 01/06/17 03/30/17 Quetiapine Fumarate [Seroquel Xr] 225 mg PO HS 01/06/17 03/30/17 Ranitidine HCl [Zantac] 150 mg PO BID PRN 01/06/17 03/30/17 hydrOXYzine HCl [Hydroxyzine HCl] 50 mg PO Q6H PRN 01/06/17 03/30/17 Allergies Allergy/AdvReac Type Severity Reaction Status Date / Time ibuprofen Allergy Unknown Nausea Verified 03/30/17 13:24 nitroglycerin Allergy Hives Verified 03/30/17 13:24 ketorolac [From Toradol] AdvReac Nausea Verified 03/30/17 13:24 All systems ED: reviewed and negative except as stated. Constitutional: Denies: fever Eyes: Denies: vision change Cardiovascular: Reports: chest pain Respiratory: Denies: cough Gastrointestinal: Reports: nausea Musculoskeletal: Denies: back pain Neurological: Denies: headache Chest Pain PMH - Past Medical History Medical history: Reports: cardiomyopathy, CHF, coronary artery disease, hyperlipidemia, hypertension, myocardial infarction, other (substance abuse) Surgical history: Reports: pacemaker/AICD - Social History Smoking Status: Unknown if ever smoked Alcohol use: Reports: none Drug use: Reports: none Physical Exam - General Limitations: no limitations General appearance: alert, in no apparent distress - Head Head exam: atraumatic, normocephalic, normal inspection - Eye Eye exam: Present: normal appearance, PERRL, EOMI - ENT ENT exam: normal exam, normal oropharynx, mucous membranes moist - Neck Neck exam: Present: normal inspection, full ROM, trachea midline - Chest Chest inspection: Present: normal inspection, symmetric chest wall rise, other ( AICD or a pacemaker noted in the left chest) - Respiratory Respiratory exam: Present: normal lung sounds bilaterally - Cardiovascular Cardiovascular exam: Present: regular rate, normal rhythm, normal heart sounds - Abdominal Exam Abdominal exam: Present: soft, Non-Tender, distention (Patient reports baseline) . Absent: tenderness, guarding, rebound, rigidity - Extremities Exam Extremities exam: Present: normal inspection, full ROM, normal capillary refill. Absent: tenderness, pedal edema - Expanded Lower Extremity Exam Hip/Pelvis exam: Present: pelvis stable - Neurological Exam Neurological exam: Present: alert, oriented X3 - Psychiatric Psychiatric exam: Present: normal affect, normal mood - Skin Skin exam: Present: warm, dry, intact, normal color Course Course Narrative: 66-year-old male presenting with chest pain and elevated troponin. Reportedly had a normal EKG and chest x-ray at the [facility]. We will recheck a troponin and EKG here. Patient was already given full-strength aspirin. We will admit for further workup. - Consultations Consultation #1: Spoke with the on-call rope silica machine operator, Dr. Graves. Due to the patient's ongoing chest pain. We have repeated a troponin. Once that gets back. We will call him back to determine if further intervention will be necessary. Patient remained stable, no diaphoresis, reports his pain is still there. Have not been able to give nitroglycerin due to a reported allergy. Time: 13:24 Vital Signs Temperature 98.2 F 03/30/17 12:47 Pulse Rate 97 03/30/17 12:47 Respiratory Rate 20 03/30/17 12:47 Blood Pressure 139/84 03/30/17 12:47 O2 Sat by Pulse Oximetry 92 03/30/17 12:47 Temperature 98.1 F 03/30/17 14:08 Pulse Rate 94 03/30/17 14:08 Respiratory Rate 16 03/30/17 14:08 Blood Pressure 120/76 03/30/17 14:08 O2 Sat by Pulse Oximetry 96 03/30/17 14:08 Oxygen Delivery Oxygen Delivery Nasal Cannula Chest Pain - Medical Records Medical records reviewed: Yes I reviewed the patient's medical records. - Lab Data Lab results reviewed: Yes I reviewed the patient's lab results. Lab Results 03/30/17 Range/Units 13:05 Troponin I 0.01 (0-0.03) ng/mL - EKG Data EKG attestation: Yes I reviewed and interpreted this EKG. EKG results narrative: Sinus rhythm with PVCs, rate 98, WI interval 179, QRS 144, QTC 433, left axis deviation, right bundle branch block, no previous available. Attestation Statement - Attestation Attestation: I examined this patient and my medical decision-making was reviewed with the Resident Physician. I agree with the documented findings, disposition and treatment plan as described except to the extent set forth below. Face to face time provided in conjunction with the resident physician Dr. Cedillo [facility]. h/o CAD, AICD. had + trop PASTEURISER OPERATOR. appears in no acute distress on exam
[2017-03-30] MEDS ORDERED: *HR* Morphine 2 MG/ML SYRINGE IVP ONE (12:54)
--- NOTE | 2017-03-30 15:17 | Cardiology Consult Note ---
Date of Encounter: 03/30/17 Time of Encounter: 14:00 Assessment and Plan (1) Chest pain Current Visit: No Status: Acute Per cardiology: -Reports chest pain started today while eating breakfast. -States pain worsens with exertion, deep inspiration, and sitting forward. -Reports pain relieved by rest. -Admits to current chest pain rates 6/10. -ECG with no acute ischemic changes, unchanged from previous ECG. -Stress 12/2016 with fixed defect noted, no ischemia noted. -Trop[facility] at [facility] 0.[facility]. Troponin at [place] negative. -Of note, patient reports is allergic to nitro, states has hives and nausea with nitro. -Trend troponins. -Will continue to monitor. Qualifiers: Chest pain type: unspecified Qualified Code(s): R07.9 - Chest pain, unspecified (2) Ischemic cardiomyopathy Current Visit: Yes Status: Chronic Per cardiology: -Known ischemic cardiomyopathy. Has ICD. -TTE 12/2016 with LVEF 30-35%, global and regional wall motion abnormalities. Lead noted in RA and RV. Mild MR. -Per review of last cardiology note, was on beta master and ARB. -Recommend continuing home medications. (3) Coronary artery disease Current Visit: No Status: Chronic Per cardiology: -Known CAD with reported LHC 5 years ago at a hospital in [place] with patent stents. -Reports H/O [place] with PCI in 2007. -Per last cardiology note was on asa, statin, and beta master. -Will continue to monitor. -Recommend continuing home medications. Qualifiers: Coronary Disease-Associated Artery/Lesion type: [place] artery [place] vs. transplanted heart: [place] heart Associated angina: without angina Qualified Code(s): I25.10 - Atherosclerotic heart disease of [place] coronary artery without angina pectoris (4) Tobacco abuse Current Visit: No Status: Chronic Per cardiology: -Smokes 1.5 ppd for 40 years. - I spent 5 minutes reviewing smoking cessation education with patient. Discussion w patient/family: The assessment and plan as outlined above was discussed with the patient who expressed understanding and agreement. All questions were answered. Thank you for involving us in the care of your patient. Please call with any questions. Discussed and reviewed with . History of Present Illness Consult date: 03/30/17 Requesting physician: Darion Cedillo Consult reason: elevated troponin Chief complaint: chest pain History of present illness: Mr. Velazquez is a 66 year old male with a relevant past medical history of CAD s/ p PCI 2007, ischemic cardiomyopathy, AICD, HTN, hyperlipidemia, DM, and smoking 1.5ppd for 40 years. Per reports, patient was inpatient at the [place] and complained of chest pain. Troponin at [place] was noted to be 0.1. Patient reports chest pain started at 0730 this morning while he was sitting eating breakfast. Patient reports pain felt "like an elephant sitting on my chest." Patient reports pain radiated to left arm. Patient reports pain was worsened with exertion and relieved with rest. Patient reports pain worsened with sitting forward. ALso states pain somewhat worsens with deep inspiration. Patient reports this pain is similar to his previous angina symptoms. Patient reports increased shortness of breath and increased fatigue over the past 3-4 months. Patient admits to current chest pain, rates 6/10. Of note, patient reports has gained about 7 pounds from his scales at home. ALso reports productive cough with yellow sputum. Past Med Surg Social Fam HX - Past Medical History Attestation: Yes The following information was validated with the patient. Source: patient, old records reviewed Medical history: cardiomyopathy, CHF, coronary artery disease, hyperlipidemia, hypertension, myocardial infarction, other (substance abuse) Psychiatric history: anxiety, depression, PTSD - Past Surgical History Surgical History: pacemaker/AICD - Social History Smoking Status: Unknown if ever smoked Smokeless Tobacco Status: No Alcohol use: none Drug use: none Medications and Allergies Acetaminophen [Non-Aspirin] 325 mg PO TID 01/05/17 [History] Albuterol Sulfate [Albuterol Inhaler] 2 puff IH Q6HR PRN 01/05/17 [History] Aspirin [Lo-Dose Aspirin EC] 81 mg PO DAILY 01/05/17 [History] Atorvastatin Calcium [Lipitor] 80 mg PO HS 01/05/17 [History] Budesonide/Formoterol 80/4.5 [Symbicort 80/4.5] 2 puff IH BIDR 01/05/17 [ History] Chlorhexidine Gluconate [Peridex] 15 ml MM BID 01/05/17 [History] Finasteride [Proscar] 5 mg PO DAILY 01/05/17 [History] Lidocaine Jelly 2% 1 appl MM TID PRN 01/05/17 [History] amLODIPine [Norvasc] 5 mg PO DAILY 01/05/17 [History] Gabapentin [Neurontin] 1,200 mg PO TID 01/06/17 [History] Insulin ASPART [Novolog Flexpen] 10 unit SQ TIDAC 01/06/17 [History] Insulin Glargine,Hum.rec.anlog [Lantus Solostar] 34 unit SQ QAM 01/06/17 [ History] LORazepam [Ativan] 1 mg PO BID 01/06/17 [History] Losartan [Cozaar] 25 mg PO DAILY 01/06/17 [History] Metformin HCl [Glucophage] 1,000 mg PO BID 01/06/17 [History] Nicotine Patch [Nicoderm] 21 mg TD DAILY 01/06/17 [History] Oxycodone HCl 10 mg PO TID 01/06/17 [History] Oxycodone HCl [Oxaydo] 5 mg PO Q6H PRN 01/06/17 [History] Pantoprazole Sodium [Protonix] 40 mg PO DAILY 01/06/17 [History] Quetiapine Fumarate [Seroquel Xr] 225 mg PO HS 01/06/17 [History] Ranitidine HCl [Zantac] 150 mg PO BID PRN 01/06/17 [History] hydrOXYzine HCl [Hydroxyzine HCl] 50 mg PO Q6H PRN 01/06/17 [History] 3 Allergy/AdvReac Type Severity Reaction Status Date / Time ibuprofen Allergy Unknown Nausea Verified 03/30/17 13:24 nitroglycerin Allergy Hives Verified 03/30/17 13:24 ketorolac [From Toradol] AdvReac Nausea Verified 03/30/17 13:24 All Systems Review: A 10-system review of systems was performed and is negative for pertinent findings except as documented above in the HPI. - Constitutional Constitutional: fatigue, weight gain - Cardiovascular Cardiovascular: as per HPI, chest pain at rest, dyspnea on exertion - Respiratory Respiratory: cough Physical Examination Vital Signs, Last 4 Hours Temp Pulse Resp BP Pulse Ox 03/30/17 14:08 98.1 F 94 16 120/76 96 03/30/17 13:49 16 132/89 General: Conversant, No Apparent Distress HEENT: Atraumatic, Normocephaly, Mucus Membranes Moist Neck: No JVD, Normal carotid pulses Cardiac: Reg Rate and Rhythm, Normal S1 and S2, No Murmur Lungs: Normal Breath Sounds, No Wheeze, Rales, Rhonchi Neuro: Alert and responsive, No focal deficits noted Abdomen: Soft, Non-Tender Skin: No rashes noted on visualized skin Musculoskeletal: No Chest Wall Tenderness, Other (No chest wall tenderness with palpation, however admits to worsened chest pain with deep inspiration. ) Extremities: No Clubbing, No Cyanosis, No Edema, Normal Pulses Results Laboratory Tests 03/30/17 13:05 Troponin I 0.01 - Imaging and Cardiology Stress Test: report reviewed Echo: report reviewed - EKG Interpretation EKG results cardiology: personally reviewed (ECG with SR, RBBB, HR 98.) Consult Discharge Plan - Plan [facility]errals: [facility] [Primary Care Provider] -
[2017-03-30] MEDS ORDERED: Naloxone 0.4 MG/ML INJ IVP PRN (15:54)
[2017-03-30] MEDS ORDERED: Famotidine 20 MG TABLET PO PRN (15:58)
[2017-03-30] MEDS ORDERED: hydrOXYzine pamoate 25 MG CAPSULE PO PRN (15:58)
[2017-03-30] MEDS ORDERED: *HR* Dextrose 50 % in Water (Syg) 50 ML SYRINGE IVP PRN (16:01)
[2017-03-30] MEDS ORDERED: Dextrose Gel 15 GM PO PRN ×2 (16:01)
[2017-03-30] MEDS ORDERED: D5% in Water 1,000 ML IVC PRN (16:01)
--- NOTE | 2017-03-30 16:11 | Internal Med History&Physical ---
Date of Encounter: 03/30/17 Time of Encounter: 15:45 Assessment and Plan (1) Chest pain Current visit: No Status: Acute given history, will admit to rule out ACS cardiology on board and consultation appreciated ECG shows no ischemic changes repeat TNI negative, will continue to monitor serial TNI pt has history of drug seeking behavior and has been adamantly asking strictly for morphine had a stress test in December 2016 which was negative for ischemic perfusion defect and was admitted with the same presentation reports of history of chronic pain for which he is on narcotic medications-will continue ASA, Lipitor NPO after midnight for any cardiology intervention in am O2 supplementation as needed Qualifiers: Chest pain type: unspecified Qualified Code(s): R07.9 - Chest pain, unspecified (2) Ischemic cardiomyopathy Current visit: Yes Status: Chronic s/p AICD continue home meds (3) CHF (congestive heart failure) Current visit: No Status: Chronic not in acute exacerbation not reported of being on any diuretics at home continue home meds Qualifiers: Congestive heart failure type: combined Congestive heart failure chronicity : chronic Qualified Code(s): I50.42 - Chronic combined systolic (congestive) and diastolic (congestive) heart failure (4) Coronary artery disease Current visit: No Status: Chronic Qualifiers: Coronary Disease-Associated Artery/Lesion type: [place] artery [place] vs. transplanted heart: [place] heart Associated angina: without angina Qualified Code(s): I25.10 - Atherosclerotic heart disease of [place] coronary artery without angina pectoris (5) COPD (chronic obstructive pulmonary disease) Current visit: Yes Status: Chronic not in acute exacerbation continue home meds Qualifiers: COPD type: unspecified COPD Qualified Code(s): J44.9 - Chronic obstructive pulmonary disease, unspecified (6) Tobacco abuse Current visit: No Status: Chronic smoking cessation counseling provided patient thinking about quitting nicotine supplementation provided (7) Diabetes mellitus Current visit: Yes Status: Acute continue home insulin regimen hold oral antihyperglycemic agents added sliding scale insulin algorithm monitor FS and BG ADA diet Qualifiers: Diabetes mellitus type: type 2 Diabetes mellitus complication status: with unspecified complications Diabetes mellitus termite technician insulin use: with termite technician use Qualified Code(s): E11.8 - Type 2 diabetes mellitus with unspecified complications; Z79.4 - tank terminal gauger (current) use of insulin; Z79.4 - tank terminal gauger ( current) use of insulin; Z79.4 - alf (current) use of insulin; Z79.4 - tank terminal gauger (current) use of insulin (8) Schizophrenia Current visit: No Status: Chronic continue home meds Qualifiers: Schizophrenia type: unspecified Qualified Code(s): F20.9 - Schizophrenia, unspecified (9) DVT prophylaxis Current visit: No Status: Acute Heparin sQ Internal Medicine - H&P: HPI Chief complaint: transfer from [facility] for chest pain Admitted From: Home Plans for Post Hospital Care: Home History of present illness: Mr. Velazquez is a 66 year old male with PMH of CAD s/p stent placement, COPD, CHF with combined systolic and diastolic HF with EF of 25% s/p ICD, schizophrenia, and substance abuse who was transferred from [facility] psych for evaluation of chest pain and positive troponin. Patient reports of substernal pressure like chest pain with radiation to the left arm that has been there since yesterday. He states deep inspirations worsens the pain, and pain is relieved with morphine. At this time, he is resting comfortably in bed and appears to be in no distress. He has history of drug seeking behavior and adamantly asking for only morphine for chest pain. Cardiology was consulted by the ER physician. Initial TNI at the [facility]: 0.15, repeat TNI: 0.01 Social history: smokes 1.5ppd, denies alcohol use Past Med Surg Social Fam HX - Past Medical History Medical history: cardiomyopathy, CHF, coronary artery disease, hyperlipidemia, hypertension, myocardial infarction, other (substance abuse) Psychiatric history: anxiety, depression, PTSD - Past Surgical History Surgical History: pacemaker/AICD - Social History Smoking Status: Unknown if ever smoked Packs per day: 1 Smokeless Tobacco Status: No Alcohol use: none Drug use: none Internal Medicine - H&P: Meds Acetaminophen [Non-Aspirin] 325 mg PO TID 01/05/17 [History] Albuterol Sulfate [Albuterol Inhaler] 2 puff IH Q6HR PRN 01/05/17 [History] Aspirin [Lo-Dose Aspirin EC] 81 mg PO DAILY 01/05/17 [History] Atorvastatin Calcium [Lipitor] 80 mg PO HS 01/05/17 [History] Budesonide/Formoterol 80/4.5 [Symbicort 80/4.5] 2 puff IH BIDR 01/05/17 [ History] Chlorhexidine Gluconate [Peridex] 15 ml MM BID 01/05/17 [History] Finasteride [Proscar] 5 mg PO DAILY 01/05/17 [History] Lidocaine Jelly 2% 1 appl MM TID PRN 01/05/17 [History] amLODIPine [Norvasc] 5 mg PO DAILY 01/05/17 [History] Gabapentin [Neurontin] 1,200 mg PO TID 01/06/17 [History] Insulin ASPART [Novolog Flexpen] 10 unit SQ TIDAC 01/06/17 [History] Insulin Glargine,Hum.rec.anlog [Lantus Solostar] 34 unit SQ QAM 01/06/17 [ History] LORazepam [Ativan] 1 mg PO BID 01/06/17 [History] Losartan [Cozaar] 25 mg PO DAILY 01/06/17 [History] Metformin HCl [Glucophage] 1,000 mg PO BID 01/06/17 [History] Nicotine Patch [Nicoderm] 21 mg TD DAILY 01/06/17 [History] Oxycodone HCl 10 mg PO TID 01/06/17 [History] Oxycodone HCl [Oxaydo] 5 mg PO Q6H PRN 01/06/17 [History] Pantoprazole Sodium [Protonix] 40 mg PO DAILY 01/06/17 [History] Quetiapine Fumarate [Seroquel Xr] 225 mg PO HS 01/06/17 [History] Ranitidine HCl [Zantac] 150 mg PO BID PRN 01/06/17 [History] hydrOXYzine HCl [Hydroxyzine HCl] 50 mg PO Q6H PRN 01/06/17 [History] 3 Allergy/AdvReac Type Severity Reaction Status Date / Time ibuprofen Allergy Unknown Nausea Verified 03/30/17 13:24 nitroglycerin Allergy Hives Verified 03/30/17 13:24 ketorolac [From Toradol] AdvReac Nausea Verified 03/30/17 13:24 All Systems PM: A 10-system review of systems was performed and is negative for pertinent findings except as documented above in the HPI. - Constitutional Constitutional: as per HPI - Constitutional Vitals: Temp Pulse Resp BP Pulse Ox 98.1 F 94 16 120/76 96 03/30/17 14:08 03/30/17 14:08 03/30/17 14:08 03/30/17 14:08 03/30/17 14:08 General appearance: Present: A&O X 3, no acute distress, answers questions appropriately - Head Head exam: Present: atraumatic, normocephalic - Eye Eye exam: Present: conjuntiva pink, sclera anicteric - Respiratory Respiratory exam: Present: decreased breath sounds. Absent: respiratory distress, wheezes - Cardiovascular Cardiovascular exam: Present: RRR, +S1, +S2. Absent: diastolic murmur, gallop, rubs, systolic murmur - GI/Abdominal GI/Abdominal exam: Present: normal bowel sounds, soft, no peritoneal signs. Absent: distended, tenderness - Extremities Exam Extremities exam: Present: full ROM, warm, radial pulses palpable and symmetrical. Absent: calf tenderness - Neurological Exam Neurological exam: Present: alert, oriented X3
[2017-03-30] MEDS: *HR* OxyCODONE Immed Rel 5 MG TABLET PO PRN (17:46)
[2017-03-30] MEDS: *HR* Heparin 5,000 UNIT/ML VIAL SQ SCH (17:46)
[2017-03-30] MEDS: Insulin LISPRO 300 UNITS/3 ML VIAL SQ SCH ×3 (17:47→21:20)
[2017-03-30] MEDS: Nicotine 21 MG PATCH.TD24 TD SCH (17:47)
[2017-03-30] MEDS: Budesonide/Formoterol 80/4.5 MDI IH SCH (20:36)
[2017-03-30] MEDS ORDERED: NON-FORMULARY MEDICATION 1 EACH EACH (Oxycodone Hcl [Oxycodone Hcl] 10 MG) PO SCH (21:00)
[2017-03-30] MEDS: Chlorhexidine Rinse 15 ML MOUTHWASH MM SCH (21:08)
[2017-03-30] MEDS: *HR* LORazepam 1 MG TABLET PO SCH (21:08)
[2017-03-30] MEDS: Gabapentin 300 MG CAPSULE PO SCH (21:09)
[2017-03-30] MEDS: Acetaminophen 325 MG TABLET PO SCH (21:09)
[2017-03-30] MEDS: *HR* Morphine 2 MG/ML SYRINGE IVP PRN (22:04)
[2017-03-30] MEDS: Ondansetron 4 MG/2 ML VIAL IVP PRN (22:09)
[2017-03-31 04:16] LABS: Basophils % 0.6 %; Eosinophils # 0.3 K/mcL (0.0-0.6); Eosinophils % 4.1 %; Hemoglobin 10.7 g/dL (12.9-16.9); Immature Granulocytes % 0.1 % (0-4); Lymphocytes % 43.4 %; Mean Corpuscular HGB Conc 33.4 g/dL (31.6-35.5); Mean Corpuscular Hemoglobin 28.2 pg (28.0-33.3); Mean Corpuscular Volume 84.4 fL (83.0-100.0); Mean Platelet Volume 11.8 fL (9.4-12.4); Monocytes # 0.6 K/mcL (0.0-1.3); Monocytes % 8.2 %; Platelet Count 151 K/mcL (140-400); Red Blood Count 3.79 M/mcL (4.19-5.50); Segmented Neutrophils % 43.6 %
[2017-03-31 04:31] LABS: BUN/Creatinine Ratio 23 (6-26); Blood Urea Nitrogen 22 mg/dL (8-26); Calcium 8.7 mg/dL (8.6-10.8); Carbon Dioxide 24 mEq/L (19-29); Chloride 110 mEq/L (98-109); Glucose 250 mg/dL (70-99); Magnesium 1.2 mg/dL (1.6-2.6); Osmolality,Calculated 308 (280-300); Phosphorous 4.4 mg/dL (2.3-4.7); Potassium 4.3 mEq/L (3.5-4.5); Sodium 143 mEq/L (136-145); Triglycerides 404 mg/dL (< 150); eGFR For African Americans > 60 (> 60); eGFR For Non-African Americans > 60 (> 60)
[2017-03-31 04:32] LABS: Chol/HDL Ratio 4.2 (0-4.9); Cholesterol 101 mg/dL (< 200); HDL Cholesterol 24 mg/dL (40-59)
[2017-03-31] MEDS: *HR* Heparin 5,000 UNIT/ML VIAL SQ SCH ×3 (06:22→16:46)
[2017-03-31] MEDS: *HR* OxyCODONE Immed Rel 5 MG TABLET PO PRN ×3 (07:01→20:31)
[2017-03-31] MEDS: Budesonide/Formoterol 80/4.5 MDI IH SCH ×2 (08:06→20:13)
--- NOTE | 2017-03-31 08:39 | Cardiology Progress Note ---
Date of Encounter: 03/31/17 Time of Encounter: 08:35 Assessment and Plan (1) Chest pain Current Visit: Yes Status: Acute Per cardiology: Atypical CP that worsens with exertion, deep inspiration, and sitting forward-- relieved by rest. Stress 12/2016 with fixed defect noted, no ischemia noted.Troponin at [facility] 0.1. Troponin at [place] negative x 3; was negative x 3 2016. Of note, patient reports is allergic to nitro, states has hives and nausea with nitro. Continues to have left anterior chest discomfort this morning worse with deep inspiration. Discussed and reviewed with Dr. Graves, no further cardiac workup warranted during this hospitalization. Cardiology will sign off, re-consult as needed, follow-up with his primary [facility] in [place]. Qualifiers: Chest pain type: unspecified Qualified Code(s): R07.9 - Chest pain, unspecified (2) Coronary artery disease Current Visit: No Status: Chronic Per cardiology: Hx of CAD with reported LHC 5 years ago at a hospital in [place] with patent stents-- [facility]. On asa, statin, ARB. Will add BB. Qualifiers: Coronary Disease-Associated Artery/Lesion type: [place] artery [place] vs. transplanted heart: [place] heart Associated angina: without angina Qualified Code(s): I25.10 - Atherosclerotic heart disease of [place] coronary artery without angina pectoris (3) Ischemic cardiomyopathy Current Visit: Yes Status: Chronic Per cardiology: Known ischemic cardiomyopathy. Has ICD. TTE 12/2016 with LVEF 30-35%, global and regional wall motion abnormalities. Lead noted in RA and RV. Mild MR. 1 episode NSVT of 14 beats. Will DC Norvasc, add low dose BB for ICMP and NSVT. K+ ok, will check Mag-- magnesium came back at 1.2 and be replaced by primary service.. (4) Tobacco abuse Current Visit: No Status: Chronic Per cardiology: Smokes 1.5 ppd for 40 years. Smoking cessation reinforced. Discussion w patient/family: The assessment and plan as outlined above was discussed with the patient who expressed understanding and agreement. All questions were answered. Thank you for involving us in the care of your patient. Please call with any questions. Patient discussed with primary service and pending transfer back to [place]. Subjective Principal diagnosis: CP Interval history: Patient reports left anterior chest wall discomfort worse with deep inspiration this morning. Pain around his ICD site, however not worse with palpation. Patient with old incision site with no edema or drainage. Denies any shortness of breath or palpitations. Objective Vital Signs, Last 4 Hours Temp Pulse Resp BP Pulse Ox 03/31/17 07:38 98.2 F 88 16 157/81 94 General: Conversant, No Apparent Distress HEENT: Atraumatic, Normocephaly, Mucus Membranes Moist Cardiac: Reg Rate and Rhythm, Normal S1 and S2, No Murmur Lungs: Normal Breath Sounds, No Wheeze, Rales, Rhonchi, Other (Slightly diminished bases) Neuro: Alert and responsive, No focal deficits noted Abdomen: Soft, Non-Tender Skin: No rashes noted on visualized skin Extremities: No Edema, Normal Pulses Results 03/31/17 03:36 03/31/17 03:36 Lab Results Laboratory Tests 01/05/17 01/06/17 01/06/17 21:02 09:58 16:02 Troponin I 0.01 0.01 0.02 03/30/17 03/30/17 03/31/17 13:05 20:45 03:36 Troponin I 0.01 0.01 0.01 Laboratory Tests 03/31/17 03:36 Magnesium 1.2 L ECHO 12/2016: Impressions: Severe LV systolic dysfunction, LVEF 30-35%. There is global hypokinesis with regional variations. Mild left ventricular diastolic dysfunction. Normal right ventricular size and function. A device lead was visualized in the right atrium and right ventricle. Mild mitral regurgitation. Unable to estimate RVSP due to lack of TR jet. Active Medications Acetaminophen (Tylenol) 325 mg PO TID [facility] Stop: 09/29/17 21:01 Last Admin: 03/30/17 21:09 Dose: 325 mg Albuterol Sulfate (Albuterol Inhaler) 2 puff IH Q2HR PRN PRN Reason: Shortness Of Breath Stop: 09/29/17 16:04 Last Admin: 03/31/17 08:06 Dose: 2 puff Amlodipine Besylate (Norvasc) 5 mg PO DAILY [facility] PRN Reason: Protocol Stop: 09/30/17 09:01 Aspirin (Aspirin Ec) 81 mg PO DAILY [facility] Stop: 09/30/17 09:01 Atorvastatin Calcium (Lipitor) 80 mg PO HS [facility] Stop: 09/29/17 21:01 Last Admin: 03/30/17 21:09 Dose: 80 mg Budesonide/Formoterol Fumarate (Symbicort) 2 puff IH BIDR [facility] PRN Reason: Protocol Stop: 09/29/17 22:01 Last Admin: 03/31/17 08:06 Dose: 2 puff Chlorhexidine Gluconate (Chlorhexidine Rinse) 15 ml MM BID [facility] Stop: 09/29/17 21:01 Last Admin: 03/30/17 21:08 Dose: 15 ml Dextrose/Water (Dextrose 50% (Syg)) 25 ml IVP AD PRN PRN Reason: Hypoglycemia Stop: 09/29/17 16:02 Famotidine (Pepcid) 20 mg PO BID PRN PRN Reason: GERD Finasteride (Proscar) 5 mg PO DAILY [facility] PRN Reason: Protocol Stop: 09/30/17 09:01 Gabapentin (Neurontin) 300 mg PO TID [facility] Stop: 09/29/17 21:01 Last Admin: 03/30/17 21:09 Dose: 300 mg Glucagon (Glucagen) 1 mg IM ONCE PRN PRN Reason: Hypoglycemia Stop: 09/29/17 16:02 Glucose (Gluctose) 15 gm PO ONCE PRN PRN Reason: Hypoglycemia Stop: 09/29/17 16:02 Glucose (Gluctose) 30 gm PO ONCE PRN PRN Reason: Hypoglycemia Stop: 09/29/17 16:02 Heparin Sodium (Porcine) (Heparin) 5,000 unit SQ Q12HCO [facility] Stop: 09/29/17 18:01 Last Admin: 03/31/17 06:22 Dose: 5,000 unit Hydroxyzine Pamoate (Hydroxyzine Pamoate) 50 mg PO Q6H PRN PRN Reason: Anxiety Last Admin: 03/30/17 17:46 Dose: 50 mg Dextrose (Dextrose 5%) 1,000 mls @ 100 mls/hr IVC .Q10H PRN PRN Reason: HYPOGLYCEMIA Stop: 09/29/17 16:02 Insulin Detemir (Levemir) 34 unit SQ QAM [facility] Stop: 09/30/17 09:01 Insulin Human Lispro (Humalog) 10 units SQ TIDAC [facility] Stop: 09/29/17 16:31 Last Admin: 03/30/17 17:47 Dose: 10 units Insulin Human Lispro (Humalog) 0 units SQ TIDAC [facility] PRN Reason: Protocol Stop: 09/29/17 16:31 Last Admin: 03/30/17 17:47 Dose: 10 units Insulin Human Lispro (Humalog) 0 units SQ HS [facility] PRN Reason: Protocol Stop: 09/29/17 21:01 Last Admin: 03/30/17 21:20 Dose: 5 units Lidocaine (Lidocaine Jelly 2%) 1 appl MM TID PRN PRN Reason: Pain Stop: 09/29/17 15:59 Lorazepam (Ativan) 1 mg PO BID [facility] Stop: 09/29/17 21:01 Last Admin: 03/30/17 21:08 Dose: 1 mg Losartan Potassium (Cozaar) 25 mg PO DAILY [facility] PRN Reason: Protocol Stop: 09/30/17 09:01 Morphine Sulfate (Morphine Sulfate) 2 mg IVP Q4HR PRN PRN Reason: Chest Pain Stop: 09/29/17 15:55 Last Admin: 03/30/17 22:04 Dose: 2 mg Naloxone HCl (Narcan) 0.4 mg IVP Q2MIN PRN PRN Reason: Opioid Reversal Stop: 09/29/17 15:55 Nicotine (Nicoderm) 21 mg TD DAILY [facility] PRN Reason: Protocol Stop: 09/29/17 16:01 Last Admin: 03/30/17 17:47 Dose: 21 mg Omeprazole (Prilosec) 40 mg PO DAILY [facility] Stop: 09/30/17 09:01 Ondansetron HCl (Zofran) 4 mg IVP Q6HR PRN PRN Reason: Nausea And Vomiting Stop: 09/29/17 15:55 Last Admin: 03/30/17 22:09 Dose: 4 mg Oxycodone HCl (Roxicodone) 5 mg PO Q6H PRN PRN Reason: MODERATE TO SEVERE PAIN Last Admin: 03/31/17 07:01 Dose: 5 mg Quetiapine Fumarate (Seroquel) 100 mg PO BID [facility] Stop: 09/29/17 21:01 Last Admin: 03/30/17 21:09 Dose: 100 mg - Imaging and Cardiology Chest Xray: report reviewed Stress Test: report reviewed Echo: report reviewed - EKG Interpretation EKG results cardiology: other (12 hr tele shows avg HR 83, 1 14 beat episode NSVT) Consult Discharge Plan - Plan [facility]errals: [facility] [Primary Care Provider] -
[2017-03-31] MEDS ORDERED: amLODIPine 5 MG TABLET PO SCH (09:00)
[2017-03-31] MEDS: *HR* Morphine 2 MG/ML SYRINGE IVP PRN (09:14)
[2017-03-31] MEDS: Aspirin Enteric Coated 81 MG Tablet PO SCH (09:15)
[2017-03-31] MEDS: Insulin DETEMIR 100 UNIT/ML X5UNITS SQ SCH (09:15)
[2017-03-31] MEDS: Chlorhexidine Rinse 15 ML MOUTHWASH MM SCH ×2 (09:16→20:30)
[2017-03-31] MEDS: Finasteride 5 MG TABLET PO SCH (09:17)
[2017-03-31] MEDS: *HR* LORazepam 1 MG TABLET PO SCH ×2 (09:18→20:30)
[2017-03-31] MEDS: Metoprolol XL (24 HR) Succ 25 MG TAB.ER.24H PO SCH (09:18)
[2017-03-31] MEDS: Insulin LISPRO 300 UNITS/3 ML VIAL SQ SCH ×7 (09:26→20:30)
[2017-03-31] MEDS: Acetaminophen 325 MG TABLET PO SCH ×3 (09:34→20:31)
[2017-03-31] MEDS: Nicotine 21 MG PATCH.TD24 TD SCH (09:34)
[2017-03-31] MEDS: Gabapentin 300 MG CAPSULE PO SCH ×3 (09:34→20:30)
[2017-03-31] MEDS: Magnesium Sulfate 2 GM in D5% in Water 100 ML IVPB SCH ×2 (09:54→12:22)
--- NOTE | 2017-03-31 11:05 | Transfer Summary ---
Date of Encounter: 03/31/17 Time of Encounter: 09:50 Transfer Discharge Sum: Diag - Discharge Diagnosis (1) Chest pain Status: Acute (2) Ischemic cardiomyopathy Status: Chronic (3) CHF (congestive heart failure) Status: Chronic (4) Coronary artery disease Status: Chronic (5) COPD (chronic obstructive pulmonary disease) Status: Chronic (6) Tobacco abuse Status: Chronic (7) Diabetes mellitus Status: Chronic (8) Schizophrenia Status: Chronic (9) DVT prophylaxis Status: Acute Transfer Discharge Sum: Med - Medications Active and Home Medications: Home Medications Acetaminophen [Non-Aspirin] 325 mg PO TID 01/05/17 [History Confirmed 03/30/17] Albuterol Sulfate [Albuterol Inhaler] 2 puff IH Q6HR PRN 01/05/17 [History Confirmed 03/30/17] Aspirin [Lo-Dose Aspirin EC] 81 mg PO DAILY 01/05/17 [History Confirmed 03/30/17 ] Atorvastatin Calcium [Lipitor] 80 mg PO HS 01/05/17 [History Confirmed 03/30/17] Budesonide/Formoterol 80/4.5 [Symbicort 80/4.5] 2 puff IH BIDR 01/05/17 [ History Confirmed 03/30/17] Chlorhexidine Gluconate [Peridex] 15 ml MM BID 01/05/17 [History Confirmed 03/30] Finasteride [Proscar] 5 mg PO DAILY 01/05/17 [History Confirmed 03/30/17] Lidocaine Jelly 2% 1 appl MM TID PRN 01/05/17 [History Confirmed 03/30/17] amLODIPine [Norvasc] 5 mg PO DAILY 01/05/17 [History Confirmed 03/30/17] Gabapentin [Neurontin] 300 mg PO TID 01/06/17 [History Confirmed 03/30/17] Insulin ASPART [Novolog Flexpen] 10 unit SQ TIDAC 01/06/17 [History Confirmed ] Insulin Glargine,Hum.rec.anlog [Lantus Solostar] 34 unit SQ QAM 01/06/17 [ History Confirmed 03/30/17] LORazepam [Ativan] 1 mg PO BID 01/06/17 [History Confirmed 03/30/17] Losartan [Cozaar] 25 mg PO DAILY 01/06/17 [History Confirmed 03/30/17] Metformin HCl [Glucophage] 1,000 mg PO BID 01/06/17 [History Confirmed 03/30/17] Nicotine Patch [Nicoderm] 21 mg TD DAILY 01/06/17 [History Confirmed 03/30/17] Pantoprazole Sodium [Protonix] 40 mg PO DAILY 01/06/17 [History Confirmed ] Quetiapine Fumarate [Seroquel Xr] 225 mg PO HS 01/06/17 [History Confirmed 03/30] Ranitidine HCl [Zantac] 150 mg PO BID PRN 01/06/17 [History Confirmed 03/30/17] hydrOXYzine HCl [Hydroxyzine HCl] 50 mg PO Q6H PRN 01/06/17 [History Confirmed 03/30/17] Active Medications Acetaminophen (Tylenol) 325 mg PO TID [facility] Stop: 09/29/17 21:01 Last Admin: 03/31/17 09:34 Dose: Not Given Albuterol Sulfate (Albuterol Inhaler) 2 puff IH Q2HR PRN PRN Reason: Shortness Of Breath Stop: 09/29/17 16:04 Last Admin: 03/31/17 08:06 Dose: 2 puff Aspirin (Aspirin Ec) 81 mg PO DAILY [facility] Stop: 09/30/17 09:01 Last Admin: 03/31/17 09:15 Dose: 81 mg Atorvastatin Calcium (Lipitor) 80 mg PO [facility] Stop: 09/29/17 21:01 Last Admin: 03/30/17 21:09 Dose: 80 mg Budesonide/Formoterol Fumarate (Symbicort) 2 puff IH BIDR [facility] PRN Reason: Protocol Stop: 09/29/17 22:01 Last Admin: 03/31/17 08:06 Dose: 2 puff Chlorhexidine Gluconate (Chlorhexidine Rinse) 15 ml MM BID [facility] Stop: 09/29/17 21:01 Last Admin: 03/31/17 09:16 Dose: 15 ml Dextrose/Water (Dextrose 50% (Syg)) 25 ml IVP AD PRN PRN Reason: Hypoglycemia Stop: 09/29/17 16:02 Famotidine (Pepcid) 20 mg PO BID PRN PRN Reason: GERD Finasteride (Proscar) 5 mg PO DAILY [facility] PRN Reason: Protocol Stop: 09/30/17 09:01 Last Admin: 03/31/17 09:17 Dose: 5 mg Gabapentin (Neurontin) 300 mg PO TID [facility] Stop: 09/29/17 21:01 Last Admin: 03/31/17 09:34 Dose: Not Given Glucagon (Glucagen) 1 mg IM ONCE PRN PRN Reason: Hypoglycemia Stop: 09/29/17 16:02 Glucose (Gluctose) 15 gm PO ONCE PRN PRN Reason: Hypoglycemia Stop: 09/29/17 16:02 Glucose (Gluctose) 30 gm PO ONCE PRN PRN Reason: Hypoglycemia Stop: 09/29/17 16:02 Heparin Sodium (Porcine) (Heparin) 5,000 unit SQ Q12HCO [facility] Stop: 09/29/17 18:01 Last Admin: 03/31/17 06:22 Dose: 5,000 unit Hydroxyzine Pamoate (Hydroxyzine Pamoate) 50 mg PO Q6H PRN PRN Reason: Anxiety Last Admin: 03/30/17 17:46 Dose: 50 mg Dextrose (Dextrose 5%) 1,000 mls @ 100 mls/hr IVC .Q10H PRN PRN Reason: HYPOGLYCEMIA Stop: 09/29/17 16:02 Magnesium Sulfate 2 gm/ (Dextrose) 104 mls @ 100 mls/hr IVPB Q4H [facility] Stop: 03/31/17 14:03 Last Admin: 03/31/17 09:54 Dose: 100 mls/hr Insulin Detemir (Levemir) 34 unit SQ QAM [facility] Stop: 09/30/17 09:01 Last Admin: 03/31/17 09:15 Dose: 34 unit Insulin Human Lispro (Humalog) 10 units SQ TIDAC [facility] Stop: 09/29/17 16:31 Last Admin: 03/31/17 09:26 Dose: 10 units Insulin Human Lispro (Humalog) 0 units SQ TIDAC [facility] PRN Reason: Protocol Stop: 09/29/17 16:31 Last Admin: 03/31/17 09:26 Dose: 10 units Insulin Human Lispro (Humalog) 0 units SQ HS [facility] PRN Reason: Protocol Stop: 09/29/17 21:01 Last Admin: 03/30/17 21:20 Dose: 5 units Lidocaine (Lidocaine Jelly 2%) 1 appl MM TID PRN PRN Reason: Pain Stop: 09/29/17 15:59 Lorazepam (Ativan) 1 mg PO BID [facility] Stop: 09/29/17 21:01 Last Admin: 03/31/17 09:18 Dose: 1 mg Losartan Potassium (Cozaar) 25 mg PO DAILY [facility] PRN Reason: Protocol Stop: 09/30/17 09:01 Last Admin: 03/31/17 09:33 Dose: Not Given Metoprolol Succinate (Toprol Xl) 12.5 mg PO DAILY [facility] Stop: 09/30/17 09:01 Last Admin: 03/31/17 09:18 Dose: 12.5 mg Morphine Sulfate (Morphine Sulfate) 2 mg IVP Q4HR PRN PRN Reason: Chest Pain Stop: 09/29/17 15:55 Last Admin: 03/31/17 09:14 Dose: 2 mg Naloxone HCl (Narcan) 0.4 mg IVP Q2MIN PRN PRN Reason: Opioid Reversal Stop: 09/29/17 15:55 Nicotine (Nicoderm) 21 mg TD DAILY [facility] PRN Reason: Protocol Stop: 09/29/17 16:01 Last Admin: 03/31/17 09:34 Dose: Not Given Omeprazole (Prilosec) 40 mg PO DAILY [facility] Stop: 09/30/17 09:01 Last Admin: 03/31/17 09:16 Dose: 40 mg Ondansetron HCl (Zofran) 4 mg IVP Q6HR PRN PRN Reason: Nausea And Vomiting Stop: 09/29/17 15:55 Last Admin: 03/30/17 22:09 Dose: 4 mg Oxycodone HCl (Roxicodone) 5 mg PO Q6H PRN PRN Reason: MODERATE TO SEVERE PAIN Last Admin: 03/31/17 07:01 Dose: 5 mg Quetiapine Fumarate (Seroquel) 100 mg PO BID [facility] Stop: 09/29/17 21:01 Last Admin: 03/31/17 09:18 Dose: 100 mg Transfer Discharge Sum: Data Procedures and tests throughout hospitalization: Pending Orders 03/30/17 15:39 Consult to Warehouse Inventory Clerk [CONS] Routine 03/30/17 15:54 Admit as Inpatient Routine Glucose, blood poc measurement [RC] ACHS Peripheral IV [RC] CONT Vital Signs Assessment [RC] Q4H Morphine [Morphine Sulfate] 2 mg IVP Q4HR PRN Naloxone [Narcan] 0.4 mg IVP Q2MIN PRN Ondansetron [Zofran] 4 mg IVP Q6HR PRN Resuscitation Status: Active [RES] Routine 03/30/17 15:55 Cardiac Monitoring Med/Surg [RC] .CONT Measure intake and output [RC] QSHIFT Measure weight [RC] DAILY Oxygen via nasal cannula Nasal Cannula 2 lpm 03/30/17 15:58 Famotidine [Pepcid] 20 mg PO BID PRN Lidocaine Jelly 2% 1 appl MM TID PRN OxyCODONE Immed Rel [Roxicodone] 5 mg PO Q6H PRN hydrOXYzine pamoate 50 mg PO Q6H PRN 03/30/17 16:00 Nicotine Patch [Nicoderm] 21 mg TD DAILY 03/30/17 16:01 Glucose, blood poc measurement [RC] .achs Hypoglycemia Treatment Orders [RC] .once Notify provider [RC] once D5% in Water [Dextrose 5%] 1,000 ml IVC 100 mls/hr Dextrose 50 % in Water (Syg) [Dextrose 50% (Syg)] 25 ml IVP AD PRN Dextrose Gel [Gluctose] 15 gm PO ONCE PRN Dextrose Gel [Gluctose] 30 gm PO ONCE PRN Glucagon, Human Recombinant [GlucaGen] 1 mg IM ONCE PRN 03/30/17 16:03 Albuterol Sulfate [Albuterol Inhaler] 2 puff IH Q2HR PRN 03/30/17 16:30 Insulin LISPRO [HumaLOG] 10 units SQ TIDAC Insulin LISPRO [HumaLOG] See Protocol SQ TIDAC 03/30/17 18:00 Heparin 5,000 unit SQ Q12HCO 03/30/17 21:00 Acetaminophen [Tylenol] 325 mg PO TID Atorvastatin [Lipitor] 80 mg PO HS Chlorhexidine Rinse 15 ml MM BID Gabapentin [Neurontin] 300 mg PO TID Insulin LISPRO [HumaLOG] See Protocol SQ HS LORazepam [Ativan] 1 mg PO BID Quetiapine Fumarate [SEROquel] 100 mg PO BID 03/30/17 22:00 Budesonide/Formoterol 80/4.5 [Symbicort] 2 puff IH BIDR 03/31/17 09:00 Aspirin Enteric Coated [Aspirin EC] 81 mg PO DAILY Finasteride [Proscar] 5 mg PO DAILY Insulin DETEMIR [Levemir] 34 unit SQ QAM Losartan [Cozaar] 25 mg PO DAILY Magnesium Sulfate 2 gm D5% in Water [Dextrose 5%] 100 ml IVPB Q4H Metoprolol XL (24 HR) Succ [Toprol XL] 12.5 mg PO DAILY Omeprazole [PriLOSEC] 40 mg PO DAILY 03/31/17 Breakfast ADA [Diabetic Diet] Transfer Discharge Sum: Prov Date of admission: 03/30/17 13:43 Primary care physician: PCP [facility] Consults: 03/30/17 15:39 Consult to Warehouse Inventory Clerk [CONS] Routine Reason for Consult: DISCHARGE PLANING. PATIENT FROM [facility] Discharging clinician: Vanda Galvez Anticipated date of transfer: 03/31/17 Receiving physician/facility: [facility] Transfer Discharge Sum: A/P - Plan Functional capacity at transfer: independent ambulation Overall status at transfer: patient is back to baseline Disposition: Transfer Psychiatric Hosp Transfer Discharge Sum: Hosp Hospital course: Mr. Velazquez is a 66 year old male with PMH of CAD s/p stent placement, COPD, CHF with combined systolic and diastolic HF with EF of 25% s/p ICD, schizophrenia, and substance abuse who was transferred from [facility] for evaluation of chest pain and positive troponin. Patient was seen by cardiology and his serial TNI were monitored. Serial TNI were negative and no acute EKG changes were reported , HI was ruled out. Pt has history of drug seeking behavior and gave false information about the pain medications he was taking at home prior to his transfer. Cardiology readjusted his home medications, Amlodipine was discontinued and Metoprolol was started due to runs of NSVT. At this time, he is hemodynamically stable and will be transferred to the [facility] inpatient psych pending bed availability. - Time Spent with Patient Total time spent providing and/or coordinating transfer services: Less than 30 minutes Transfer Discharge Sum: Exam - Constitutional Vitals: Vital Signs Temp Pulse Resp BP Pulse Ox 03/31/17 08:06 16 95 03/31/17 07:38 98.2 F 88 16 157/81 94 03/31/17 04:19 98.6 F 65 16 106/66 95 03/30/17 23:39 97.8 F 87 16 90/55 91 03/30/17 20:37 17 94 03/30/17 19:02 98.2 F 106 16 143/82 94 03/30/17 14:08 98.1 F 94 16 120/76 96 03/30/17 13:49 16 132/89 Intake and Output 03/30/17 03/31/17 03/31/17 23:59 07:59 15:59 Output Total 300 / 300 Balance -300 / -300 Output: Urine 300 / 300 Other: Meal Dinner Percent of Meal Consumed 100% Weight 79.605 kg Blood Glucose* 292 290 Patient Weight 03/31/17 23:59 Weight 79.605 kg General appearance: no acute distress - Head Head exam: Present: atraumatic, normocephalic - Eye Eye exam: Present: conjuntiva pink, sclera anicteric - Respiratory Respiratory exam: Present: CTAB. Absent: respiratory distress - Cardiovascular Cardiovascular exam: Present: RRR, +S1, +S2 - GI/Abdominal GI/Abdominal exam: Present: normal bowel sounds, soft. Absent: tenderness - Extremities Exam Extremities exam: Present: normal inspection. Absent: calf tenderness, pedal edema, tenderness - Neurological Exam Neurological exam: Present: oriented X3
[2017-03-31] MEDS: Ondansetron 4 MG/2 ML VIAL IVP PRN (20:31)
[2017-04-01] MEDS: Budesonide/Formoterol 80/4.5 MDI IH SCH (08:09)
--- NOTE | 2017-04-01 08:11 | Electrocardiograph Report ---
[place] [id number] Test Date: 2017-03-30 Pat Name: Artur Velazquez Department: 103 Room: 3B Gender: M Certified Welding Inspector: MSC : [id number] Requested By: Darion Cedillo Order Number: [id number] Reading MD: Alvin Graves MD Measurements Intervals [place] Rate: 98 P: 59 MI: 179 QRS: -28 QRSD: 144 T: 49 QT: 378 QTc: 433 Interpretive Statements SINUS RHYTHM WITH OCCASIONAL VENTRICULAR PREMATURE COMPLEXES BORDERLINE LEFT AXIS DEVIATION RIGHT BUNDLE BRANCH BLOCK Electronically Signed On 04-01-2017 8:09:58 EDT by Alvin Graves MD
[2017-04-01] MEDS: Acetaminophen 325 MG TABLET PO SCH ×2 (08:37→14:41)
[2017-04-01] MEDS: Gabapentin 300 MG CAPSULE PO SCH ×2 (08:37→14:41)
[2017-04-01] MEDS: Finasteride 5 MG TABLET PO SCH (08:37)
[2017-04-01] MEDS: Aspirin Enteric Coated 81 MG Tablet PO SCH (08:37)
[2017-04-01] MEDS: *HR* LORazepam 1 MG TABLET PO SCH (08:37)
[2017-04-01] MEDS: Metoprolol XL (24 HR) Succ 25 MG TAB.ER.24H PO SCH (08:37)
[2017-04-01] MEDS: Chlorhexidine Rinse 15 ML MOUTHWASH MM SCH (08:37)
[2017-04-01] MEDS: *HR* OxyCODONE Immed Rel 5 MG TABLET PO PRN ×2 (08:37→14:41)
[2017-04-01 08:38] LABS: BUN/Creatinine Ratio 21 (6-26); Blood Urea Nitrogen 17 mg/dL (8-26); Calcium 9.1 mg/dL (8.6-10.8); Carbon Dioxide 26 mEq/L (19-29); Chloride 108 mEq/L (98-109); Glucose 225 mg/dL (70-99); Magnesium 1.3 mg/dL (1.6-2.6); Osmolality,Calculated 297 (280-300); Phosphorous 2.5 mg/dL (2.3-4.7); Potassium 4.6 mEq/L (3.5-4.5); Sodium 139 mEq/L (136-145); eGFR For African Americans > 60 (> 60); eGFR For Non-African Americans > 60 (> 60)
[2017-04-01] MEDS: Nicotine 21 MG PATCH.TD24 TD SCH (08:38)
[2017-04-01] MEDS: Insulin LISPRO 300 UNITS/3 ML VIAL SQ SCH ×4 (08:38→12:58)
[2017-04-01] MEDS: Insulin DETEMIR 100 UNIT/ML X5UNITS SQ SCH (10:11)
[2017-04-01] MEDS ORDERED: Magnesium Sulfate 2 GM in D5% in Water 100 ML IVPB SCH (10:15)
--- NOTE | 2017-04-01 10:16 | Internal Med Progress Note ---
Date of Encounter: 04/01/17 Time of Encounter: 10:13 - Assessment and plan (1) Chest pain Current Visit: Yes Status: Acute Assessment and plan: resolved at this time cardiology evaluation appreciated, FL rule out continue home meds discharge pending bed availability at [facility] psych Qualifiers: Chest pain type: unspecified Qualified Code(s): R07.9 - Chest pain, unspecified (2) Ischemic cardiomyopathy Current Visit: Yes Status: Chronic (3) CHF (congestive heart failure) Current Visit: No Status: Chronic Qualifiers: Congestive heart failure type: systolic Congestive heart failure chronicity : acute on chronic Qualified Code(s): I50.23 - Acute on chronic systolic ( congestive) heart failure (4) Coronary artery disease Current Visit: No Status: Chronic Qualifiers: Coronary Disease-Associated Artery/Lesion type: [place] artery [place] vs. transplanted heart: [place] heart Associated angina: without angina Qualified Code(s): I25.10 - Atherosclerotic heart disease of [place] coronary artery without angina pectoris (5) COPD (chronic obstructive pulmonary disease) Current Visit: Yes Status: Chronic Qualifiers: COPD type: unspecified COPD Qualified Code(s): J44.9 - Chronic obstructive pulmonary disease, unspecified (6) Tobacco abuse Current Visit: No Status: Chronic (7) Diabetes mellitus Current Visit: Yes Status: Chronic Qualifiers: Diabetes mellitus type: type 2 Diabetes mellitus complication status: with unspecified complications Diabetes mellitus correction insulin use: with correction use Qualified Code(s): E11.8 - Type 2 diabetes mellitus with unspecified complications; Z79.4 - care home (current) use of insulin; Z79.4 - rail track layer ( current) use of insulin; Z79.4 - care home (current) use of insulin; Z79.4 - care home (current) use of insulin (8) Schizophrenia Current Visit: No Status: Chronic Qualifiers: Schizophrenia type: unspecified Qualified Code(s): F20.9 - Schizophrenia, unspecified (9) DVT prophylaxis Current Visit: No Status: Acute (10) Hypomagnesemia Current Visit: Yes Status: Acute Assessment and plan: Mg supplemented continue to monitor electrolytes and replace as needed - Subjective Interval history: Pt is a 66y/o male transferred from [facility] inpatient psych for evaluation of chest pain. Pt was seen by cardiology and FL has been ruled out. Pt was discharged to the [facility] inpatient psych unit. Transfer pending bed availability Pt resting comfortably in bed with resolution of his presenting symptoms No overnight issues reported. - Constitutional Vitals: Temp Pulse Resp BP Pulse Ox 98.3 F 79 17 120/72 96 04/01/17 07:12 04/01/17 07:12 04/01/17 08:12 04/01/17 07:12 04/01/17 08:12 General appearance: Present: A&O X 3, no acute distress, answers questions appropriately - Head Head exam: Present: atraumatic, normocephalic - Eye Eye exam: Present: conjuntiva pink, sclera anicteric - Respiratory Respiratory exam: Present: CTAB. Absent: accessory muscle use, rales, rhonchi, wheezes - Cardiovascular Cardiovascular exam: Present: RRR, +S1, +S2. Absent: diastolic murmur, gallop, rubs, systolic murmur - GI/Abdominal GI/Abdominal exam: Present: normal bowel sounds, soft, no peritoneal signs. Absent: distended, tenderness - Extremities Exam Extremities exam: Present: warm, radial pulses palpable and symmetrical. Absent : calf tenderness, cyanotic, pedal edema - Neurological Exam Neurological exam: Present: alert, oriented X3 Internal Medicine: Result - Labs CBC & Chem 7: 03/31/17 03:36 04/01/17 08:18 Labs: BMP 04/01/17 08:18 Sodium 139 Potassium 4.6 H Chloride 108 Carbon Dioxide 26 BUN 17 Creatinine 0.80 Glucose 225 H Calcium 9.1 Consult Discharge Plan - Plan Referrals: [facility] [Primary Care Provider] -
[2017-04-01 15:30] VITALS: BP 143/88
== END 2017-04-01 17:23 | DRG 313 ==
LOC: EMEROO 12:46 → 3BNU 13:43 → SUATTDRO 13:43 → 3BNU 13:50
PROVIDERS: ADMIT Hospitalist; ATTEND Internal Medicine

== ENCOUNTER 2019-04-19 21:53 | Observation (INO) ==
[2019-04-19] MEDS ORDERED: Isovue-370 500 ML BOTTLE IVP ONE (22:04)
[2019-04-19] MEDS ORDERED: *HR* FentaNYL (PF) 100 MCG/2 ML VIAL IVP ONE (22:06)
[2019-04-19 22:40] LABS: Basophils # 0.1 K/mcL (0.0-0.2); Basophils % 0.7 %; Eosinophils # 0.3 K/mcL (0.0-0.6); Eosinophils % 3.5 %; Hematocrit 35.2 % (37.5-50.1); Hemoglobin 11.5 g/dL (12.9-16.9); Immature Granulocytes % 0.4 % (0-4); Lymphocytes # 2.1 K/mcL (0.6-4.6); Lymphocytes % 29.1 %; Mean Corpuscular HGB Conc 32.7 g/dL (31.6-35.5); Mean Corpuscular Hemoglobin 28.8 pg (28.0-33.3); Mean Corpuscular Volume 88.2 fL (83.0-100.0); Mean Platelet Volume 10.7 fL (9.4-12.4); Monocytes # 0.6 K/mcL (0.0-1.3); Monocytes % 8.9 %; Neutrophils # 4.1 K/mcL (1.6-8.9); Platelet Count 165 K/mcL (140-400); Red Blood Count 3.99 M/mcL (4.19-5.50); Segmented Neutrophils % 57.4 %; White Blood Count 7.1 K/mcL (4.3-11.1)
[2019-04-19 23:01] LABS: BUN/Creatinine Ratio 22 (6-26); Blood Urea Nitrogen 20 mg/dL (8-23); Calcium 8.4 mg/dL (8.6-10.3); Carbon Dioxide 25 mEq/L (23-29); Chloride 103 mEq/L (98-107); Glucose 236 mg/dL (70-105); Osmolality,Calculated 288 (280-300); Potassium 4.2 mEq/L (3.5-5.1); Sodium 134 mEq/L (136-145); eGFR For African Americans > 60 (> 60); eGFR For Non-African Americans > 60 (> 60)
[2019-04-19 23:02] LABS: Troponin I < 0.03 ng/mL (< 0.04)
[2019-04-19] MEDS ORDERED: Ipratropium/Albuterol Neb 3 ML IH ONE (23:54)
[2019-04-19] MEDS ORDERED: predniSONE 20 MG TABLET PO ONE (23:54)
[2019-04-20] MEDS ORDERED: Acetaminophen 325 MG TABLET PO PRN (02:52)
[2019-04-20] MEDS ORDERED: Naloxone 0.4 MG/ML INJ IVP PRN (02:52)
[2019-04-20] MEDS ORDERED: traMADol 50 MG TABLET PO PRN (02:52)
[2019-04-20] MEDS ORDERED: Ondansetron 4 MG/2 ML VIAL IVP PRN (02:52)
[2019-04-20] MEDS ORDERED: Dextrose Gel 15 GM/37.5 ML TUBE PO PRN ×4 (02:56→11:40)
[2019-04-20] MEDS ORDERED: D5% in Water 1,000 ML IVC PRN ×2 (02:56→11:40)
[2019-04-20] MEDS ORDERED: *HR* Dextrose 50 % in Water (Syg) 50 ML SYRINGE IVP PRN ×2 (02:56→11:40)
[2019-04-20] MEDS ORDERED: Morphine Sulfate 2 MG/ML SYRINGE IVP ONE (02:57)
[2019-04-20] MEDS ORDERED: *HR* LORazepam 2 MG/ML VIAL IVP ONE (03:02)
[2019-04-20] MEDS ORDERED: Famotidine 20 MG TABLET PO PRN (03:28)
[2019-04-20] MEDS: Nicotine 21 MG PATCH.TD24 TD SCH (03:47)
[2019-04-20 04:03] LABS: Chol/HDL Ratio 1.8 (0-4.9); Magnesium 1.5 mg/dL (1.6-2.6)
[2019-04-20] MEDS ORDERED: Insulin LISPRO 300 UNITS/3 ML VIAL SQ SCH ×2 (06:00→21:00)
[2019-04-20] MEDS: *HR* Heparin 5,000 UNIT/ML VIAL SQ SCH ×3 (06:07→20:05)
[2019-04-20] MEDS: Budesonide/Formoterol 80/4.5 1 PUFF INH IH SCH ×2 (07:40→20:23)
[2019-04-20] MEDS: Gabapentin 300 MG CAPSULE PO SCH ×3 (08:36→20:05)
[2019-04-20] MEDS: Insulin LISPRO 300 UNITS/3 ML VIAL SQ SCH ×5 (08:37→20:06)
[2019-04-20 09:18] LABS: Estimated Average Glucose 255 mg/dl
[2019-04-20] MEDS: *HR* LORazepam 1 MG TABLET PO PRN ×2 (12:10→20:05)
[2019-04-20] MEDS: Morphine Sulfate 2 MG/ML SYRINGE IVP PRN ×2 (15:35→20:07)
[2019-04-20] MEDS: Insulin DETEMIR 100 UNIT/ML X5UNITS SQ SCH (20:05)
[2019-04-21] MEDS: Nicotine 21 MG PATCH.TD24 TD SCH (00:05)
[2019-04-21] MEDS: Morphine Sulfate 2 MG/ML SYRINGE IVP PRN ×2 (00:11→05:30)
[2019-04-21] MEDS: *HR* Heparin 5,000 UNIT/ML VIAL SQ SCH ×3 (05:04→20:49)
[2019-04-21 05:58] LABS: Hematocrit 38.8 % (37.5-50.1); Hemoglobin 12.7 g/dL (12.9-16.9); Mean Corpuscular HGB Conc 32.7 g/dL (31.6-35.5); Mean Corpuscular Hemoglobin 28.7 pg (28.0-33.3); Mean Corpuscular Volume 87.8 fL (83.0-100.0); Mean Platelet Volume 12.4 fL (9.4-12.4); Platelet Count 144 K/mcL (140-400); Red Blood Count 4.42 M/mcL (4.19-5.50); Red Cell Distribution Width 13.1 % (11.5-14.5); White Blood Count 9.6 K/mcL (4.3-11.1)
[2019-04-21 06:26] LABS: BUN/Creatinine Ratio 29 (6-26); Blood Urea Nitrogen 24 mg/dL (8-23); Calcium 9.1 mg/dL (8.6-10.3); Carbon Dioxide 20 mEq/L (23-29); Chloride 100 mEq/L (98-107); Glucose 241 mg/dL (70-105); Osmolality,Calculated 288 (280-300); Potassium 4.7 mEq/L (3.5-5.1); Sodium 133 mEq/L (136-145); eGFR For African Americans > 60 (> 60); eGFR For Non-African Americans > 60 (> 60)
[2019-04-21] MEDS ORDERED: Regadenoson 0.4 MG/5 ML SYRINGE IVP ONE (06:26)
[2019-04-21] MEDS ORDERED: *HR* OxyCODONE Immed Rel 5 MG TABLET ONE ×2 (10:23→16:30)
[2019-04-21] MEDS: Insulin LISPRO 300 UNITS/3 ML VIAL SQ SCH ×2 (19:41→20:47)
[2019-04-21] MEDS: Aspirin Enteric Coated 81 MG Tablet PO SCH (19:42)
[2019-04-21] MEDS: Finasteride 5 MG TABLET PO SCH (19:43)
[2019-04-21] MEDS: Gabapentin 300 MG CAPSULE PO SCH ×2 (19:47→20:47)
[2019-04-21] MEDS: Isosorbide MONOnitrate (24 HR) 30 MG TAB.ER.24H PO SCH (19:48)
[2019-04-21] MEDS: Budesonide/Formoterol 80/4.5 1 PUFF INH IH SCH ×2 (19:49)
[2019-04-21] MEDS: Insulin DETEMIR 100 UNIT/ML X5UNITS SQ SCH (20:47)
[2019-04-21] MEDS: *HR* LORazepam 1 MG TABLET PO PRN (20:47)
[2019-04-21] MEDS: *HR* OxyCODONE Immed Rel 5 MG TABLET PO PRN (23:12)
[2019-04-22] MEDS: Nicotine 21 MG PATCH.TD24 TD SCH (03:23)
[2019-04-22] MEDS: *HR* Heparin 5,000 UNIT/ML VIAL SQ SCH ×3 (06:32→20:38)
[2019-04-22] MEDS: *HR* OxyCODONE Immed Rel 5 MG TABLET PO PRN ×3 (06:42→18:43)
[2019-04-22] MEDS: Budesonide/Formoterol 80/4.5 1 PUFF INH IH SCH ×2 (07:41→19:52)
[2019-04-22 08:30] LABS: Hematocrit 42.2 % (37.5-50.1); Mean Corpuscular HGB Conc 33.9 g/dL (31.6-35.5); Mean Corpuscular Hemoglobin 29.2 pg (28.0-33.3); Mean Corpuscular Volume 86.3 fL (83.0-100.0); Mean Platelet Volume 11.3 fL (9.4-12.4); Platelet Count 236 K/mcL (140-400); Red Blood Count 4.89 M/mcL (4.19-5.50); White Blood Count 9.4 K/mcL (4.3-11.1)
[2019-04-22 08:32] LABS: Hemoglobin 14.3 g/dL (12.9-16.9)
[2019-04-22 08:51] LABS: BUN/Creatinine Ratio 32 (6-26); Blood Urea Nitrogen 29 mg/dL (8-23); Calcium 9.6 mg/dL (8.6-10.3); Carbon Dioxide 27 mEq/L (23-29); Chloride 97 mEq/L (98-107); Glucose 330 mg/dL (70-105); Osmolality,Calculated 291 (280-300); Potassium 5.6 mEq/L (3.5-5.1); Sodium 131 mEq/L (136-145); eGFR For African Americans > 60 (> 60); eGFR For Non-African Americans > 60 (> 60)
[2019-04-22] MEDS: Gabapentin 300 MG CAPSULE PO SCH ×4 (09:39→21:09)
[2019-04-22] MEDS: Insulin LISPRO 300 UNITS/3 ML VIAL SQ SCH ×4 (09:39→20:52)
[2019-04-22] MEDS: *HR* LORazepam 1 MG TABLET PO PRN (09:39)
[2019-04-22] MEDS: Finasteride 5 MG TABLET PO SCH (09:39)
[2019-04-22] MEDS: Aspirin Enteric Coated 81 MG Tablet PO SCH (09:40)
[2019-04-22] MEDS: Isosorbide MONOnitrate (24 HR) 30 MG TAB.ER.24H PO SCH (09:40)
[2019-04-22] MEDS ORDERED: 0.9 % Sodium Chloride 500 ML IVC ONE (16:57)
[2019-04-22] MEDS ORDERED: Morphine Sulfate 2 MG/ML SYRINGE IVP ONE ×2 (20:22→22:00)
[2019-04-22] MEDS ORDERED: *HR* LORazepam 2 MG/ML VIAL IVP ONE (20:46)
[2019-04-22] MEDS ORDERED: *HR* LORazepam 2 MG/ML VIAL ONE (20:48)
[2019-04-22] MEDS: Insulin DETEMIR 100 UNIT/ML X5UNITS SQ SCH (20:52)
[2019-04-23] MEDS: *HR* OxyCODONE Immed Rel 5 MG TABLET PO PRN ×4 (01:15→23:18)
[2019-04-23] MEDS ORDERED: Acetaminophen IV 1,000 MG/100 ML INFUS..BTL IVPB ONE (03:36)
[2019-04-23] MEDS: *HR* Heparin 5,000 UNIT/ML VIAL SQ SCH ×3 (05:10→22:10)
[2019-04-23] MEDS: Nicotine 21 MG PATCH.TD24 TD SCH (05:31)
[2019-04-23 06:59] LABS: Hematocrit 38.5 % (37.5-50.1); Hemoglobin 13.1 g/dL (12.9-16.9); Mean Corpuscular Hemoglobin 28.9 pg (28.0-33.3); Mean Corpuscular Volume 84.8 fL (83.0-100.0); Mean Platelet Volume 12.2 fL (9.4-12.4); Platelet Count 214 K/mcL (140-400); Red Blood Count 4.54 M/mcL (4.19-5.50); White Blood Count 8.1 K/mcL (4.3-11.1)
[2019-04-23 07:28] LABS: Alanine Aminotransferase 16 Units/L (7-52); Albumin/Globulin Ratio 1.5 (1.1-2.2); Alkaline Phosphatase 56 Units/L (34-104); Aspartate Amino Transferase 14 Units/L (13-39); BUN/Creatinine Ratio 34 (6-26); Bilirubin,Total 0.3 mg/dL (0.3-1.0); Blood Urea Nitrogen 27 mg/dL (8-23); Calcium 9.5 mg/dL (8.6-10.3); Carbon Dioxide 24 mEq/L (23-29); Chloride 101 mEq/L (98-107); Globulin 2.6 g/dL (2.4-3.5); Glucose 194 mg/dL (70-105); Osmolality,Calculated 290 (280-300); Sodium 135 mEq/L (136-145); Total Protein 6.6 g/dL (6.4-8.9); eGFR For African Americans > 60 (> 60); eGFR For Non-African Americans > 60 (> 60)
[2019-04-23] MEDS: Budesonide/Formoterol 80/4.5 1 PUFF INH IH SCH ×2 (07:29→20:53)
[2019-04-23] MEDS: Insulin LISPRO 300 UNITS/3 ML VIAL SQ SCH ×4 (08:24→22:10)
[2019-04-23] MEDS: Finasteride 5 MG TABLET PO SCH (08:29)
[2019-04-23] MEDS: Isosorbide MONOnitrate (24 HR) 30 MG TAB.ER.24H PO SCH (08:29)
[2019-04-23] MEDS: Gabapentin 300 MG CAPSULE PO SCH ×3 (08:29→21:48)
[2019-04-23] MEDS: Aspirin Enteric Coated 81 MG Tablet PO SCH (08:30)
[2019-04-23] MEDS: *HR* LORazepam 1 MG TABLET PO PRN ×2 (08:39→21:48)
[2019-04-23] MEDS: Insulin DETEMIR 100 UNIT/ML X5UNITS SQ SCH (21:48)
[2019-04-24 05:32] LABS: Hematocrit 42.4 % (37.5-50.1); Hemoglobin 13.9 g/dL (12.9-16.9); Mean Corpuscular HGB Conc 32.8 g/dL (31.6-35.5); Mean Corpuscular Hemoglobin 28.8 pg (28.0-33.3); Mean Corpuscular Volume 87.8 fL (83.0-100.0); Platelet Count 226 K/mcL (140-400); Red Blood Count 4.83 M/mcL (4.19-5.50); Red Cell Distribution Width 12.9 % (11.5-14.5); White Blood Count 9.6 K/mcL (4.3-11.1)
[2019-04-24 05:48] LABS: Alanine Aminotransferase 16 Units/L (7-52); Albumin 4.2 g/dL (3.5-5.7); Albumin/Globulin Ratio 1.5 (1.1-2.2); Alkaline Phosphatase 63 Units/L (34-104); Aspartate Amino Transferase 14 Units/L (13-39); BUN/Creatinine Ratio 32 (6-26); Bilirubin,Total 0.4 mg/dL (0.3-1.0); Blood Urea Nitrogen 29 mg/dL (8-23); Calcium 9.9 mg/dL (8.6-10.3); Carbon Dioxide 26 mEq/L (23-29); Chloride 101 mEq/L (98-107); Globulin 2.8 g/dL (2.4-3.5); Glucose 178 mg/dL (70-105); Osmolality,Calculated 288 (280-300); Potassium 5.1 mEq/L (3.5-5.1); Sodium 134 mEq/L (136-145); eGFR For African Americans > 60 (> 60); eGFR For Non-African Americans > 60 (> 60)
[2019-04-24] MEDS: Nicotine 21 MG PATCH.TD24 TD SCH (06:09)
[2019-04-24] MEDS: *HR* Heparin 5,000 UNIT/ML VIAL SQ SCH (06:12)
[2019-04-24] MEDS: Insulin LISPRO 300 UNITS/3 ML VIAL SQ SCH ×3 (07:40→11:32)
[2019-04-24] MEDS: Budesonide/Formoterol 80/4.5 1 PUFF INH IH SCH (07:45)
[2019-04-24] MEDS: Isosorbide MONOnitrate (24 HR) 30 MG TAB.ER.24H PO SCH (08:12)
[2019-04-24] MEDS: Aspirin Enteric Coated 81 MG Tablet PO SCH (08:12)
[2019-04-24] MEDS: Gabapentin 300 MG CAPSULE PO SCH (08:12)
[2019-04-24] MEDS: Finasteride 5 MG TABLET PO SCH (08:12)
[2019-04-24 11:03] VITALS: BP 104/67
== END 2019-04-24 14:05 ==
LOC: 3BNU 21:53 → EMEROOARM 21:53 → SUATTDRO 04-20 00:40 → 3BNU 04-20 01:12
PROVIDERS: ADMIT Internal Medicine; ATTEND Internal Medicine

== ENCOUNTER 2019-05-19 11:33 | Observation (INO) ==
[2019-05-19] MEDS ORDERED: Morphine Sulfate 2 MG/ML SYRINGE IVP ONE (11:42)
[2019-05-19] MEDS ORDERED: *HR* Heparin 5,000 UNIT/ML VIAL IVP ONE (12:01)
[2019-05-19] MEDS ORDERED: *HR* Heparin 5,000 UNIT/ML VIAL IVP PRN ×2 (12:01)
[2019-05-19] MEDS ORDERED: Heparin 25,000 UNIT/250 ML D5W 25,000 UNIT/250 ML IV.SOLN IVC SCH (12:15)
[2019-05-19 12:35] LABS: Basophils # 0.1 K/mcL (0.0-0.2); Basophils % 0.8 %; Eosinophils # 0.4 K/mcL (0.0-0.6); Eosinophils % 5.8 %; Hematocrit 38.6 % (37.5-50.1); Hemoglobin 13.1 g/dL (12.9-16.9); Immature Granulocytes % 0.3 % (0-4); Lymphocytes % 26.9 %; Mean Corpuscular HGB Conc 33.9 g/dL (31.6-35.5); Mean Corpuscular Volume 85.4 fL (83.0-100.0); Monocytes # 0.6 K/mcL (0.0-1.3); Monocytes % 8.4 %; Neutrophils # 4.2 K/mcL (1.6-8.9); Platelet Count 152 K/mcL (140-400); Red Blood Count 4.52 M/mcL (4.19-5.50); Red Cell Distribution Width 13.4 % (11.5-14.5); Segmented Neutrophils % 57.8 %; White Blood Count 7.2 K/mcL (4.3-11.1)
[2019-05-19 12:43] LABS: INR 1.1; Prothrombin Time 12.2 Seconds (9.4-12.1)
[2019-05-19 12:53] LABS: BUN/Creatinine Ratio 26 (6-26); Blood Urea Nitrogen 19 mg/dL (8-23); Calcium 8.9 mg/dL (8.6-10.3); Carbon Dioxide 23 mEq/L (23-29); Chloride 104 mEq/L (98-107); Glucose 246 mg/dL (70-105); Osmolality,Calculated 292 (280-300); Potassium 4.4 mEq/L (3.5-5.1); Sodium 136 mEq/L (136-145); Troponin I < 0.03 ng/mL (< 0.04); eGFR For African Americans > 60 (> 60); eGFR For Non-African Americans > 60 (> 60)
[2019-05-19] MEDS ORDERED: Naloxone 0.4 MG/ML INJ IVP PRN (13:02)
[2019-05-19] MEDS ORDERED: Ondansetron 4 MG/2 ML VIAL IVP PRN (13:02)
[2019-05-19] MEDS ORDERED: *HR* Dextrose 50 % in Water (Syg) 50 ML SYRINGE IVP PRN (14:41)
[2019-05-19] MEDS ORDERED: D5% in Water 1,000 ML IVC PRN (14:41)
[2019-05-19] MEDS ORDERED: Dextrose Gel 15 GM/37.5 ML TUBE PO PRN ×2 (14:41)
[2019-05-19] MEDS ORDERED: Ipratropium/Albuterol Neb 3 ML IH PRN (14:42)
[2019-05-19] MEDS ORDERED: *HR* LORazepam 2 MG/ML VIAL IVP ONE (15:22)
[2019-05-19] MEDS: Insulin LISPRO 300 UNITS/3 ML VIAL SQ SCH (15:43)
[2019-05-19] MEDS: carvediloL 25 MG TABLET PO SCH (15:43)
[2019-05-19] MEDS: Morphine Sulfate 2 MG/ML SYRINGE IVP PRN ×2 (19:18→23:36)
[2019-05-19] MEDS: Gabapentin 300 MG CAPSULE PO SCH (19:46)
[2019-05-19] MEDS ORDERED: Insulin DETEMIR 100 UNIT/ML X5UNITS SQ SCH (21:00)
[2019-05-19] MEDS ORDERED: Mirtazapine 15 MG TABLET PO SCH (21:00)
[2019-05-20 01:05] LABS: Basophils # 0.1 K/mcL (0.0-0.2); Basophils % 0.9 %; Eosinophils # 0.4 K/mcL (0.0-0.6); Eosinophils % 6.3 %; Hematocrit 35.8 % (37.5-50.1); Hemoglobin 11.8 g/dL (12.9-16.9); Immature Granulocytes % 0.3 % (0-4); Immature Platelets 4.1 % (1.1-6.1); Lymphocytes # 2.6 K/mcL (0.6-4.6); Mean Corpuscular Hemoglobin 29.1 pg (28.0-33.3); Mean Corpuscular Volume 88.4 fL (83.0-100.0); Mean Platelet Volume 11.2 fL (9.4-12.4); Monocytes # 0.5 K/mcL (0.0-1.3); Monocytes % 7.2 %; Neutrophils # 3.4 K/mcL (1.6-8.9); Platelet Count 124 K/mcL (140-400); Red Blood Count 4.05 M/mcL (4.19-5.50); Red Cell Distribution Width 13.5 % (11.5-14.5); Segmented Neutrophils % 48.3 %
[2019-05-20 01:40] LABS: BUN/Creatinine Ratio 27 (6-26); Blood Urea Nitrogen 22 mg/dL (8-23); Calcium 8.7 mg/dL (8.6-10.3); Carbon Dioxide 23 mEq/L (23-29); Chloride 102 mEq/L (98-107); Chol/HDL Ratio 2.3 (0-4.9); Cholesterol 86 mg/dL (< 200); Glucose 299 mg/dL (70-105); HDL Cholesterol 38 mg/dL (40-59); LDL Cholesterol,Calculated 12 mg/dL (0-99); Osmolality,Calculated 294 (280-300); Potassium 4.2 mEq/L (3.5-5.1); Sodium 135 mEq/L (136-145); Triglycerides 178 mg/dL (< 150); eGFR For African Americans > 60 (> 60); eGFR For Non-African Americans > 60 (> 60)
[2019-05-20] MEDS: Morphine Sulfate 2 MG/ML SYRINGE IVP PRN (06:08)
[2019-05-20] MEDS: Gabapentin 300 MG CAPSULE PO SCH (08:33)
[2019-05-20] MEDS: carvediloL 25 MG TABLET PO SCH ×2 (08:33→16:05)
[2019-05-20] MEDS: Insulin LISPRO 300 UNITS/3 ML VIAL SQ SCH ×3 (08:33→16:06)
[2019-05-20] MEDS ORDERED: Finasteride 5 MG TABLET PO SCH (09:00)
[2019-05-20] MEDS ORDERED: Aspirin Enteric Coated 81 MG Tablet PO SCH (09:00)
[2019-05-20] MEDS ORDERED: hydrOXYzine pamoate 25 MG CAPSULE PO PRN (10:01)
[2019-05-20] MEDS ORDERED: Nitroglycerin 0.4 MG TAB.SUBL SL PRN (10:02)
[2019-05-20] MEDS: *HR* OxyCODONE Oral Soln 5 MG/5 ML UD.LIQ PO PRN ×2 (10:12→16:05)
[2019-05-20 10:45] LABS: Amphetamine Screen,Urine Negative ng/mL (Cutoff=1000); Barbiturate Screen,Urine Negative ng/mL (Cutoff=200); Benzodiazepines Screen,Urine Negative ng/mL (Cutoff=200); Cannabinoid Screen,Urine Negative ng/mL (Cutoff = 50); Cocaine Screen,Urine Negative ng/mL (Cutoff= 300); Opiate Screen,Urine Positive ng/mL (Cutoff=300); Phencyclidine Screen,Urine Negative ng/mL (Cutoff=25)
[2019-05-20 19:30] VITALS: BP 138/79
[2019-05-20] MEDS ORDERED: Insulin LISPRO 300 UNITS/3 ML VIAL SQ SCH (21:00)
[2019-05-20] MEDS ORDERED: Insulin DETEMIR 100 UNIT/ML X5UNITS SQ SCH (21:00)
[2019-05-21] MEDS ORDERED: *HR* Enoxaparin 40 MG/0.4 ML SYRINGE SQ SCH (06:00)
== END 2019-05-20 20:55 ==
LOC: 3BNU 11:33 → EMEROOARM 11:33 → 3BNU 14:53
PROVIDERS: ADMIT Family Medicine; ATTEND Family Medicine